=== PATIENT | female | born 1955 | race Caucasian/White ===

== ENCOUNTER → 2017-03-02 18:24 | Outpatient (CLI) | payer MEDICARE, OTHER ==
[2013-08-08 10:29] VITALS: BMI 20.8
[~2017-03-02 18:24] MED LIST: ACIPHEX20 MG PO; ADDERALL 30 MG30 MG PO; GLUCOPHAGE500 MG; LISINOPRIL10 MG PO; MIRAPEX0.25 MG PO; NOVOLIN R100 U/ML SQ; ZOCOR10 MG PO
== END | disposition home or self-care (01) ==
LOC: D.LABREF 18:24
DX: M25.561 Pain in right knee (principal)

== ENCOUNTER 2017-04-17 18:51 | Inpatient (IN) | payer MEDICARE, OTHER ==
[~2017-04-17] VITALS: Ht 167.6 cm; Wt 67.6 kg
[~2017-04-17 18:51] MED LIST changes: -GLUCOPHAGE500 MG; +GLUCOPHAGE500 MG PO
[2017-04-17 21:55] LABS: BASOPHILS 0.2 % (0-2); EOSINOPHILS 2.3 % (0-7); HEMOGLOBIN 11.3 g/dL (12-16); IMMATURE GRANULOCYTES 0.2 % (0-5); LYMPHOCYTES 33.2 % (15-50); MCHC 32.3 g/dL (31.0-37.0); MCV 89.7 fL (80.0-100.0); MONOCYTES 7.1 % (2-11); RDW 12.8 % (11.5-14.5); WBC 6.1 10x3/uL (4.8-10.8)
[2017-04-17 21:57] LABS: PLATELET COUNT 239 10x3/uL (130-400)
[2017-04-17 22:08] LABS: INR 1.1 (0.85-1.17); PROTIME 14.1 SECONDS (11.6-15.0)
[2017-04-17 22:09] LABS: APTT 40.7 SECONDS (22.8-39.4); HEMOGLOBIN A1C 8.7 % (4.8-6.0)
[2017-04-17 22:10] LABS: ALBUMIN 2.8 g/dL (3.4-5.0); ANION GAP 7.6 mmol/L (8-16); BILIRUBIN - TOTAL 0.21 mg/dL (0.2-1.3); CALCIUM 8.1 mg/dL (8.5-10.1); CARBON DIOXIDE 30.5 mmol/L (21.0-32.0); CREATININE - SERUM 0.9 mg/dL (0.6-1.3); POTASSIUM - SERUM 4.1 mmol/L (3.5-5.1); PROTEIN - SERUM 5.6 g/dL (6.4-8.2)
[2017-04-17] MEDS ORDERED: PROVIGIL200 MG PO (23:01)
[2017-04-17] MEDS ORDERED: PROVIGIL100 MG PO (23:02)
[2017-04-17] MEDS ORDERED: OMEPRAZOLE40 MG PO (23:03)
[2017-04-17] MEDS ORDERED: TOPAMAX100 MG PO (23:04)
[2017-04-17] MEDS ORDERED: PROAIR HFA8.5 GM INH (23:05)
--- NOTE | 2017-04-18 02:00 | NUR ---
PT IN BED WITH NO DISTRESS. RESPIRATIONS EVEN AND UNLABORED. SIDE RAILS X 2. BED IS LOW. CALL LIGHT IN REACH.
[2017-04-18 04:00] VITALS: BP 99/56
[2017-04-18 05:30] VITALS: BP 124/72; BMI 19.4
[2017-04-18 08:32] VITALS: BP 113/71
[2017-04-18 08:57] LABS: BASOPHILS 0.2 % (0-2); EOSINOPHILS 2.9 % (0-7); HEMOGLOBIN 11.8 g/dL (12-16); IMMATURE GRANULOCYTES 0.2 % (0-5); LYMPHOCYTES 38.6 % (15-50); MCH 29.2 pg (26.0-34.0); MCHC 32.8 g/dL (31.0-37.0); MCV 89.1 fL (80.0-100.0); MEAN PLATELET VOLUME 8.7 fL (7.4-10.4); MONOCYTES 8.2 % (2-11); NEUTROPHILS 49.9 % (40-80); PLATELET COUNT 235 10x3/uL (130-400); RBC 4.04 10x6/uL (4.00-5.40); RDW 12.9 % (11.5-14.5); WBC 4.8 10x3/uL (4.8-10.8)
[2017-04-18 09:07] LABS: CALC OSMOLALITY 283 mosm/kg (275-300); CALCIUM 8.4 mg/dL (8.5-10.1); CARBON DIOXIDE 34.1 mmol/L (21.0-32.0); CHLORIDE - SERUM 107 mmol/L (98-107); CREATININE - SERUM 0.8 mg/dL (0.6-1.3); POTASSIUM - SERUM 3.8 mmol/L (3.5-5.1); SODIUM 143 mmol/L (136-145); UREA NITROGEN 15 mg/dL (7-18); eGFR NON AFRICAN AMERICAN 77 mL/min (90-120)
[2017-04-18 09:11] LABS: APTT 38.2 SECONDS (22.8-39.4); INR 1.1 (0.85-1.17); PROTIME 14.1 SECONDS (11.6-15.0)
[2017-04-18 09:27] LABS: GLUCOSE 63 mg/dL (74-106)
--- NOTE | 2017-04-18 10:30 | NUR ---
REPORT RECIEVED AND CARE ASSUMED PT RESTIN GIN BED NO DISTRESS NOTED DAUGHTER AT BEDSIDE FOR SURGERY TODAY KNEE REPLACEMENT VS ABT SPACER PLACMENT
[2017-04-18 11:12] LABS: APPEARANCE HAZY (CLEAR); BILIRUBIN NEGATIVE (NEGATIVE); COLOR YELLOW (YELLOW); GLUCOSE 500 mg/dL (NEGATIVE); KETONE NEGATIVE (NEGATIVE); LEUKOCYTE ESTERASE 2+ (NEGATIVE); NITRITE NEGATIVE (NEGATIVE); UROBILINOGEN NORMAL (NORMAL)
[2017-04-18 11:13] LABS: PROTEIN NEGATIVE (NEGATIVE)
[2017-04-18 11:14] LABS: BACTERIA FEW /hpf (NONE SEEN); EPITHELIAL CELLS 0-5 /hpf (0-5); MUCUS <1+ /lpf (NONE SEEN); RED CELLS - URINE OCC /hpf (0-5); WHITE CELLS - URINE 0-5 /hpf (0-5)
--- NOTE | 2017-04-18 12:30 | NUR ---
PT FBS 50 GIVEN 1/2 AMP D50 PER ORDER. RECHECK AT 1310 FBS 100
[2017-04-18 12:44] VITALS: BP 106/67
[2017-04-18 16:15] VITALS: BP 107/63
[2017-04-18 20:00] VITALS: BP 125/64
--- NOTE | 2017-04-18 20:00 | NUR ---
ASSESSMENT PER FLOWSHEET. EYES CLOSED RESPIRATIONS WITH EASE AND UNLABORED. FAMILY MEMBER AT BEDSIDE. IV PATENT RT FOREARM OF NS AT 50CC'S/HR. RT KNEE RED AND SWOLLEN.
--- NOTE | 2017-04-18 21:00 | NUR ---
MEDS GIVEN PER MAR. PATIENT AWAKE AND CONCERNED ABOUT HER HOME MEDS. PRINTED OFF A MED SHEET AND WENT OVER MEDS WITH PATIENT SHE ALSO HAD HER RX BOTTLES AVAILABLE AND HOME MEDS WERE ADDRESSED.
[2017-04-19] VITALS: BP 119/71
--- NOTE | 2017-04-19 | NUR ---
EYES CLOSED RESPIRATIONS WITH EASE AND UNLABORED.
--- NOTE | 2017-04-19 03:00 | NUR ---
REMAINS NPO FOR POSSIBLE SURGERY IN AM.
[2017-04-19 04:03] VITALS: BP 162/69
[2017-04-19 05:03] LABS: BASOPHILS 0.4 % (0-2); HEMATOCRIT 36.4 % (36.0-48.0); HEMOGLOBIN 11.6 g/dL (12-16); IMMATURE GRANULOCYTES 0.2 % (0-5); LYMPHOCYTES 30.4 % (15-50); MCH 28.9 pg (26.0-34.0); MCHC 31.9 g/dL (31.0-37.0); MCV 90.8 fL (80.0-100.0); MEAN PLATELET VOLUME 9.2 fL (7.4-10.4); MONOCYTES 6.8 % (2-11); NEUTROPHILS 60.2 % (40-80); PLATELET COUNT 230 10x3/uL (130-400); RBC 4.01 10x6/uL (4.00-5.40); RDW 12.8 % (11.5-14.5); WBC 4.6 10x3/uL (4.8-10.8)
--- NOTE | 2017-04-19 05:13 | NUR ---
RESTING QUIETLY RESPIRATIONS WITH EASE AND UNLABORED.
[2017-04-19 05:36] LABS: CALCIUM 8.4 mg/dL (8.5-10.1); CARBON DIOXIDE 32.1 mmol/L (21.0-32.0); CREATININE - SERUM 0.9 mg/dL (0.6-1.3)
[2017-04-19 05:37] LABS: POTASSIUM - SERUM 5.1 mmol/L (3.5-5.1)
--- NOTE | 2017-04-19 06:43 | NUR ---
C/O PAIN MORPHINE 4 MG IVP GIVEN FOR PAIN CONTROL. MEDS GIVEN PER NOV.
--- NOTE | 2017-04-19 07:30 | NUR ---
AWAKE, DENIES NEEDS, READY FOR DC, BED LOWEST POSITION, CALL LIGHT IN REACH, WILL CONTINUE TO MONITOR
[2017-04-19 08:43] VITALS: BP 127/71
[2017-04-19 13:56] VITALS: BP 154/87
[2017-04-19 16:17] VITALS: BP 150/86
--- NOTE | 2017-04-19 19:48 | NUR ---
C/O PAIN IN RT KNEE RATES PAIN LEVEL #6. PERCOCET TAB ONE PO GIVEN WITH A SIP OF WATER.
[2017-04-19 20:00] VITALS: BP 125/81
--- NOTE | 2017-04-19 20:00 | NUR ---
ASSESSMENT PER FLOWSHEET. SR UP X2 CALL LIGHT WITHIN REACH NPO FOR SURGERY FAMILY AT BEDSIDE.
--- NOTE | 2017-04-19 20:30 | NUR ---
TO SURGERY PER BED.
[2017-04-20] VITALS (28 sets, daily range): BP systolic 88–169; BP diastolic 57–100
--- NOTE | 2017-04-20 00:07 | NUR ---
PT STILL TRYING TO GET OUT OF BED AND NEEDS RESTRAINTS. ADULT PROTECTIVE CASEWORKER CALLED TO ASSESS THE PATIENT
--- NOTE | 2017-04-20 00:23 | NUR ---
FAMILY AND BOTTOM PRESSER HERE AND MADE A DECISION TO KEEP THE PATIENT IN ICU DUE TO CONCERNS OF THE PATIENT GETTING UP OUT OF BED AND FALLING. THE PATIENT APPEARED TO REST COMFORTABLE BUT WHEN AWAKENED WOULD WANT TO GET UP.
--- NOTE | 2017-04-20 00:30 | NUR ---
REC'D MESSAGE FROM [employer] SALES ENGINEER PATIENT WILL BE GOING TO ICU POST OP DUE TO PT CONTINUING TO TRY AND CLIMB OUT OF BED. BEING UNCOOPERATIVE WITH STAFF.
--- NOTE | 2017-04-20 00:40 | NUR ---
REC'D TO ROOM 2304 VIA BED. TRANSFERRED TO ICU BED AND ICU MONITORS ESTAB. PT DROWSY, DISORIENTED TO SITUATION AND TIME. R KNEE LOLIS DSG C/D/I - R FOOT WARM , PEDAL PULSES PALP. R AC PIV PATENT, NO REDNESS OR SWELLING AT SITE. PLACED ON BEDPAN PER REQUEST - NO VOID AT THIS TIME. ALAMS ON. SEE ICU ASSESSMENT.
--- NOTE | 2017-04-20 01:18 | NUR ---
SON AT BS, B/L SOFT WRIST RESTRAINTS ON PER MD ORDER - PT CONFUSED AND PULLING AT LINES/DRESSINGS. HE VERBALIZES UNDERSTANDING.
--- NOTE | 2017-04-20 01:24 | NUR ---
FAMILY ALLOWED BACK TO AT A TIME. PT DROWSY, FALLING ASLEEP AT TIMES.
--- NOTE | 2017-04-20 02:45 | NUR ---
Reassessment completed per flowsheet, patient resting in bed with eyes closed. Patient uncooperative and aguing with caregivers, disoriented to time/place/situation. S1/S2 noted Sinus Tach on telemetry with HR 108, rhythmic and regular. Breathing is shallow on 2L via NC with O2 sat 93%. All pulses palpable with cap refill < 3 sec. R knee bandaged with no bleeding or drainage noted, skin warm to touch. No further needs at this time, all VSS and will continue to monitor.
--- NOTE | 2017-04-20 03:21 | NUR ---
REASSESSMENT PER FLOWSHEET, PT DEMANDING TO GET UP TO PEE - ASSISTED TO BSC, VOIDED 100ML CLEAR, YELLOW URINE. RPISCILA-CARE PER PT AND BACK TO BED. PT ARGUMENTATIVE AND UNCOOPERATIVE, TRIED TO PULL IV OUT - CONT RESTRAINTS PER MD ORDER. REFUSED RESP TX.
--- NOTE | 2017-04-20 04:30 | NUR ---
PT BEGINNING TO COMPLAIN OF PAIN IN R LEG. CUSTOMER OPERATIONS INTERN DILAUDID INITIATED PER MD ORDER.
[2017-04-20 04:32] LABS: BASOPHILS 0.1 % (0-2); EOSINOPHILS 0.2 % (0-7); HEMATOCRIT 35.9 % (36.0-48.0); HEMOGLOBIN 11.6 g/dL (12-16); IMMATURE GRANULOCYTES 0.5 % (0-5); LYMPHOCYTES 4.7 % (15-50); MCHC 32.3 g/dL (31.0-37.0); MCV 89.8 fL (80.0-100.0); MEAN PLATELET VOLUME 9.3 fL (7.4-10.4); MONOCYTES 5.1 % (2-11); NEUTROPHILS 89.4 % (40-80); PLATELET COUNT 252 10x3/uL (130-400); RDW 12.8 % (11.5-14.5)
[2017-04-20 04:34] LABS: WBC 13.7 10x3/uL (4.8-10.8)
[2017-04-20 04:48] LABS: ANION GAP 14.8 mmol/L (8-16); CALCIUM 8.5 mg/dL (8.5-10.1); CARBON DIOXIDE 27.6 mmol/L (21.0-32.0); POTASSIUM - SERUM 4.4 mmol/L (3.5-5.1)
--- NOTE | 2017-04-20 05:30 | NUR ---
PT USING TIE UP WORKER DILAUDID. RESTING WITH EYES CLOSED AT THIS TIME. VSS. R LEG ELEVATED WITH ICE PACK. ALARMS ON AND C/L IN REACH.
--- NOTE | 2017-04-20 06:28 | NUR ---
NO VISITORS, PT RESTING QUIETLY, VSS.
--- NOTE | 2017-04-20 07:13 | NUR ---
PT AGAIN INSISTING TO GET OOB, ARGUING WITH STAFF - DR. MERCER NOTIFIED OF NEW BLEEDING NOTED POSTERIOR KNEE AND PT AGITATION. NEW ORDERS.
--- NOTE | 2017-04-20 07:37 | CN ---
PATIENT NAME:GURJIT BARKER MEDICAL RECORD: [id number] : 51 LOCATION:[facility]4 ADMIT DATE: 04/18/17 ACCOUNT: [id number] CONSULTING PHYSICIAN: KARTHIK JAMES DO REFERRING PHYSICIAN: SHAYLA MERCER MD GREGORY DATE OF CONSULTATION: 04/18/2017 HISTORY OF PRESENT ILLNESS: A 61-year-old female, consult for medical management, diabetes, hypertension. The patient presented to the Emergency Room with right knee pain, had a previous right total knee arthroplasty that failed with loosening of the joint, was scheduled for revision in April, felt a pop this weekend, presented to the Emergency Room last night. X-ray showed loosening and rotation of the hardware. The patient was admitted to Dr. Mercer with consult for medical management as above. PAST MEDICAL HISTORY: Significant for rheumatoid osteoarthritis, lupus syndrome. The patient has an unclear history of syncopal episodes. Her primary care physician evidently is treating her for narcolepsy. She is on Adderall and Provigil. She also has history of hypertension, is on lisinopril; history of hyperlipidemia, is on Zocor. ALLERGIES: REPORTED KEFLEX AND NEURONTIN. FAMILY HISTORY: Significant for neurological disorders. REVIEW OF SYSTEMS: GENERAL: No acute changes in activity level. HEENT: No cephalgia, visual changes, tinnitus, epistaxis or dysphagia. CARDIOVASCULAR: Denies chest pain or palpitations. PULMONARY: Denies hemoptysis. Denies night sweats. GASTROINTESTINAL: Denies hematemesis, hematochezia or melena. GENITOURINARY: Denies dysuria. MUSCULOSKELETAL: Acute right knee pain and instability as noted above, prior total knee with loosening of the hardware. ENDOCRINE: History of type 2 diabetes, now on insulin. NEUROLOGIC: No present focal deficits, unclear history of narcolepsy versus episodic seizures versus obstructive sleep apnea. She denies ever having any neurological workup, been treated empirically with the above medication by her PCP. PHYSICAL EXAMINATION: VITAL SIGNS: Temperature 97.9, blood pressure 113/71, heart rate 85, respirations 18, O2 sats 100%. GENERAL: Alert, oriented, mild distress secondary to pain in right knee. HEENT: Normocephalic, atraumatic. Eyes: Pupils equal, round and reactive to light and accommodation. Extraocular muscles are intact. Conjunctivae not injected. Ears: Canals patent, TMs are intact. Nose: Nares patent without drainage. Throat: No erythema, no exudates. NECK: Supple. No lymphadenopathy. No JVD. HEART: Regular rate and rhythm. No S3 or S4, no rub. LUNGS: Clear to auscultation bilaterally. Breathing is nonlabored. ABDOMEN: Soft, nontender. Bowel sounds all 4 quadrants. EXTREMITIES: Present times 4. Swelling old surgical scar, right knee, with effusion. NEUROLOGIC: No focal deficits. CONSULT REPORT [id number] GURJIT BARKER [facility]ORAT[facility] DATA: CBC: White count 4.8, hemoglobin 11.8, hematocrit 36, platelets 235. PT is 14.1, INR 1.1. Glucose 201. Chemistry shows sodium of 137, potassium 4.1, chloride 103, bicarbonate 30.5, BUN 18, creatinine 0.9. A1c is 8.7. Ultrasound negative for DVT. X-ray of the right knee, two-view, show no acute fracture. There is loosening of the femoral component of the right knee arthroplasty, rotation of the hardware, large joint effusion. ASSESSMENT AND PLAN: 1. Loosening of hardware, right knee. The patient is admitted to Dr. Mercer, revision anticipated. 2. Diabetes mellitus type 2, insulin-dependent. Resume medications. Add sliding scale, monitor. 3. Unclear history of narcolepsy versus syncope versus seizure disorder. We will hold stimulant medications. Recommend neurology evaluation as outpatient. Also recommend no driving until cleared by neurologist. Discussed this with the patient and family. I appreciate this consult. We will follow accordingly. TRANSINT:[id number] Voice Confirmation ID: [id number] DOCUMENT ID: [id number] KARTHIK JAMES DO at 0737 CC: [id number] DICTATION DATE: 04/18/17923 WATERSIDE WORKER: 04/18/17 1219 ADM IN [facility] [address] [place] [address]
--- NOTE | 2017-04-20 09:49 | NUR ---
PT COMMING OOB AND UNABLE TO REDIRECT, PULLING AT IV LINES AND 02 AND SPO2 DROPS TO 86% AT TIMES. PT RESTRAINED ORDERED. FAMILY HERE AT VISITING HR. PT'S SON REPORTS THAT PT DID FALL AND HIT HER HEAD PRIOR TO HOSPITAL STAY. SON REPORTS THAT THIS WAS NOT KNOWN TO HOSPITAL STAFF BECAUSE THE PERSON WHO BROUGHT HER DID NOT KNOW ABOUT HER HITTING HER HEAD. CALLED AND REPORTED TO DR WILEY AND REC'D ORDERS. CT HEAD ORDER CALLED TO CT ROOM. DR DALLAS CONSULT CALLLED TO DR DALLAS AND REPORTED ASSESSMENT FINDINGS AND HX TO HIM.
--- NOTE | 2017-04-20 10:33 | NUR ---
PT TO CT FOR CT HEAD.
--- NOTE | 2017-04-20 13:50 | NUR ---
1300-DR WHITMAN ROUNDED, SPOKE TO FAMILY AT BS.
--- NOTE | 2017-04-20 13:51 | NUR ---
PT PULLING AT LINES AND ATTEMPTS TO GET OOB. SPOKE TO AMANDO HICKS AT DR REILLY OFFICE. CHANGE PERCOCET AND DILAUDID TO MS IN ATTEMPTS TO CLEAR CONFUSION. REPOSITIONED AND ASSISTED WITH A DRINK.
--- NOTE | 2017-04-20 14:59 | NUR ---
Patient confused - unable to assess dc plans/needs at this time.
[2017-04-20 15:15] LABS: APPEARANCE CLEAR (CLEAR); COLOR YELLOW (YELLOW); LEUKOCYTE ESTERASE NEGATIVE (NEGATIVE); NITRITE NEGATIVE (NEGATIVE); PROTEIN NEGATIVE (NEGATIVE); SPECIFIC GRAVITY 1.025 (1.005-1.020)
[2017-04-20 15:16] LABS: BILIRUBIN NEGATIVE (NEGATIVE); GLUCOSE 1000 mg/dL (NEGATIVE); KETONE MODERATE mg/dL (NEGATIVE); UROBILINOGEN NORMAL (NORMAL)
--- NOTE | 2017-04-20 15:24 | NUR ---
PT CONFUSED, INSISTING TO GO TO POST OFFICE. UNABLE TO REDIRECT. ATIVAN GIVEN.
--- NOTE | 2017-04-20 15:53 | NUR ---
PT CONTINUES TO ATTEMPT TO GET OOB. UNABLE TO REDIRECT. REPOSITIONED IN BED AND ATTEMPTED TO REDIRECT. ASSISTED WITH SIPS OF WATER.
[2017-04-20 16:36] LABS: HEMATOCRIT 29.7 % (36.0-48.0); HEMOGLOBIN 9.7 g/dL (12-16)
--- NOTE | 2017-04-20 19:00 | NUR ---
REPORT RECEIVED. ASSESSMENT COMPLETE PER FLOW SHEET. LAYING IN BED. CONFUSED AND DISORIENTED. WEARS GLASSES. MUCOUS MEMBRANES MOIST. 2 L NC. S1S2 PRESENT. READIAL AND POPLITEAL PULSES PALP. CAPILLARY REFILL <3 SECS IN UPPER AND LOWER EXTREMITIES. TELEMETRY MONITORING SINUS TACHYCARDIA RATE OF 105. HERNANDEZ CATHETER IN PLACE AND SECURED. BANDAGE STAINED WITH BLOOD TO R KNEE/LEG, ICE PACK IN PLACE. SKIN WARM AND DRY. REDDENED AREA B/L FEET. SCDS IN PLACE. RT AC PIV, PATENT, DRESSING CLEAN AND ADHERED TO SKIN. BED IN LOWEST POSITION. BEDSIDE TABLE WITH BELONGINGS NEAR REACH. SEE FLOW SHEET FOR COMPLETE ASSESSMENT. WILL CONTINUE TO MONITOR.
--- NOTE | 2017-04-20 20:30 | NUR ---
LAYING IN BED. DENIES NEEDS AT THIS TIME. CALL LIGHT WITHIN REACH. BED IN LOWEST POSITION. WILL CONTINUE TO MONITOR.
--- NOTE | 2017-04-20 21:10 | NUR ---
R AC PIV OUT OF PLACE DUE TO PT BEING UNCOOPERATIVE AND HYPERACTIVE, DESPITE ATTEMPTS TO CALM HER DOWN, AND MEDICATION GIVEN. NEW PIV TO L AC INFUSING. BED IN LOWEST POSITION. WILL CONTINUE TO MONITOR.
--- NOTE | 2017-04-20 21:41 | NUR ---
LAYING IN BED CALM, RESTING. WILL CONTINUE TO MONITOR. BED IN LOWEST POSITION.
--- NOTE | 2017-04-20 23:00 | NUR ---
REASSESSMENT COMPLETE PER FLOW SHEET, SEE FOR DETAILS. VSS. DENIES NEEDS AT THIS TIME. BED IN LOWEST POSITION. WILL CONTINUE TO MONTIOR.
[2017-04-21] VITALS (25 sets, daily range): BP systolic 114–154; BP diastolic 59–91; Ht 167.6 cm; Wt 67.6 kg
--- NOTE | 2017-04-21 01:00 | NUR ---
LAYING IN BED, RESTING. VSS. DENIES NEEDS AT THIS TIME. CALL LIGHT WITHIN REACH. BED IN LOWEST POSITION. WILL CONTINUE TO MONITOR.
--- NOTE | 2017-04-21 03:00 | NUR ---
LAYING IN BED RESTING. REASSESSMENT COMPLETE PER FLOW SHEET, SEE FOR DETAILS. VSS. DENIES NEEDS AT THIS TIME. CALL LIGHT WITHIN REACH. BED IN LOWEST POSITION. WILL CONTINUE TO MONITOR.
[2017-04-21 03:55] LABS: BASOPHILS 0.1 % (0-2); EOSINOPHILS 0.4 % (0-7); HEMATOCRIT 27.5 % (36.0-48.0); HEMOGLOBIN 8.7 g/dL (12-16); IMMATURE GRANULOCYTES 0.4 % (0-5); LYMPHOCYTES 7.4 % (15-50); MCH 28.6 pg (26.0-34.0); MCHC 31.6 g/dL (31.0-37.0); MCV 90.5 fL (80.0-100.0); MONOCYTES 7.5 % (2-11); NEUTROPHILS 84.2 % (40-80); RDW 13.2 % (11.5-14.5)
[2017-04-21 04:02] LABS: PLATELET COUNT 138 10x3/uL (130-400); RBC 3.04 10x6/uL (4.00-5.40); WBC 9.4 10x3/uL (4.8-10.8)
[2017-04-21 04:13] LABS: CALC OSMOLALITY 284 mosm/kg (275-300); CALCIUM 8.2 mg/dL (8.5-10.1); CARBON DIOXIDE 23.6 mmol/L (21.0-32.0); CHLORIDE - SERUM 106 mmol/L (98-107); CREATININE - SERUM 0.8 mg/dL (0.6-1.3); POTASSIUM - SERUM 4.5 mmol/L (3.5-5.1); SODIUM 141 mmol/L (136-145); UREA NITROGEN 14 mg/dL (7-18); eGFR NON AFRICAN AMERICAN 77 mL/min (90-120)
[2017-04-21 04:14] LABS: GLUCOSE 160 mg/dL (74-106)
--- NOTE | 2017-04-21 04:30 | NUR ---
LAYING IN BED RESTING, DENIES NEEDS AT THIS TIME. CALL LIGHT WITHIN REACH, BED IN LOWEST POSITION. WILL CONTINUE TO MONITOR.
--- NOTE | 2017-04-21 06:00 | NUR ---
LAYING IN BED RESTING, VSS. DENIES NEEDS AT THIS TIME. CALL LIGHT WITHIN REACH. BED IN LOWEST POSITION. WILL CONTINUE TO MONITOR.
--- NOTE | 2017-04-21 07:00 | NUR ---
PT AWAKE AND ALERT, DISORIENTED TO PLACE TIME AND SITUATION. ABLE TO OBEY COMMANDS BUT SO CONFUSED SHE DOES SO INCONSISTENTLY. PT ATTEMPTING TO GET OUT OF BED AND IS SCREAMING. ATTEMPTING TO REORIENT AND EXPLAIN NEED FOR RESTRAINTS FOR HER SAFETY. PT PULLED OUT PIV, USING OTHER IV AT THIS TIME. PULLED OF ELECTRODES FOR EKG. REARRANGED ROOM TO ENSURE SAFETY. COMPLETE SHIFT ASSESSMENT DOCUMENTED PER FLOWSHEET. VITAL SIGNS STABLE
--- NOTE | 2017-04-21 09:00 | NUR ---
PT PULLED OUT PIV. RESITED 20 GA IN LEFT FA AND WRAPPED IN KERLEX GAUZE TO ATTEMPT TO KEEP IN. PT STILL SCREAMING AND DISORIENTED. ATTEMPTING TO ORIENT FREQUENTLY. PT IS ARGUMENTATIVE AND COMBATIVE AT THIS TIME. MONITORING FOR ACUTE CHANGES CLOSELY.
--- NOTE | 2017-04-21 10:12 | NUR ---
* Is the patient Alert and Oriented? Yes 0 * How many steps to enter\exit or inside your home? 3-4 0 * PCP Dr. Shrestha 0 * Pharmacy [facility] 0 * Preadmission Environment Home with Family 0 * ADLs Independent 0 * List name and contact numbers for known caregivers / representatives who currently or will assist patient after discharge: Raya - Mildred [phone] Son - Froylan [phone] Srinivasa Desouza [phone] AICHA Avery [phone] Daughter - Pricila Villa [phone] 0 * Additional services required to return to the preadmission environment? Yes 0 * Can the patient safely return to the preadmission environment? Yes 0 * Has this patient been hospitalized within the prior 30 days at any hospital? No Patient Name: GURJIT BARKER Admission Status: ER Accout number: [id number] Admission Date: 04-18-2017 : 1955 Admission Diagnosis:[facility] LOOSENING OF INTERNAL RIGHT KNEE PROSTHETIC JOINT, Attending: RIK Current LOS: 3 Planned Disposition: Home with Home Health Primary Insurance: MEDICARE A & B Discharge Planning Comments: CM attempted to meet with patient - she remains somewhat agitated. Called and spoke with son, Froylan, via telephone. He reports prior to admission, patient was living with her daughter & her family. She was independent with all ADL's & IADL's. He states she was not using any assistive devices for mobility. He states she has had home health services in the past, but not currently. At ri, she will return home with her family. She will likely need home health. CM will follow & assist as needed. Mechanical Specialist: Susana Vasques
--- NOTE | 2017-04-21 10:58 | NUR ---
CALLED [facility], DR BENSON, AND DR DINERO'S OFFICE PER DR WHITMAN'S REQUEST TO OBTAIN ONCOLOGY HISTORY AND RECORDS. NONE OF THE CLINICS HAVE TREATED THIS PATIENT. AT THIS TIME WE ARE UNABLE TO DETERMINE HISTORY BECAUSE PT IS DISORIENTED AND UNABLE TO GIVE INFORMATION.
--- NOTE | 2017-04-21 13:00 | NUR ---
SON CALLED AND UPDATE GIVEN. PT ASLEEP AT THIS TIME. NO ACUTE CHANGES IN STATUS AT THIS TIME. WILL CONTINUE TO MONITOR
--- NOTE | 2017-04-21 15:20 | NUR ---
PT SCREAMING OUT AND CUSSING AT NURSING STAFF. ATTEMPTED TO REORIENT AND EXPLAIN WHERE SHE IS AND WHY. PT IS COMBATIVE AND REFUSES TO LISTEN AT THIS TIME. PAIN MEDICATION GIVEN. WILL MONITOR CLOSELY.
--- NOTE | 2017-04-21 17:00 | NUR ---
PT AWAKE AT THIS TIME. COMBATIVE AND YELLING. ATTEMPTING TO REORIENT FREQUENTLY. NO FURTHER CHANGES IN STATUS. WILL CONTINUE TO MONITOR
--- NOTE | 2017-04-21 19:15 | NUR ---
REPORT RECIEVED. SHIFT ASSESSMENT COMPLETE. PT IS SLEEPING PEACEFULLY AT THE MOMENT. WHEN AWOKEN SHE IS VERY CONFUSED. SHE DOES KNOW WHO SHE IS BUT SHE DOES NOT KNOW THE TIME, PLACE, AND SITUATION. VSS. SHE IS WEARING HER GLASSES. S1S2 AUDIBLE. HR 107, SINUS TACH VIA TELEMETRY. RR IS SHALLOW, CLEAR LUNG SOUNDS THROUGHOUT ALL LOBES. BS ACTIVE X4, NONTENDER TO TOUCH. R KNEE/CALF DRESSING CDI. RLE GENERALIZED EDEMA. PEDAL PULSES PALP +2. BILAT FEET RED AREA NOTED. IV TO L FOREARM. BANANA BAG INFUSING @ 125 ML/HR AND NS @ KVO. HERNANDEZ CATH, STAT LOCK IN PLACE, DRAINING CLEAR YELLOW FLUID. NO SIGNS OF ACUTE DISTRESS NOTED. SCD'S AND RESTRAINTS RELEASED AND SKIN INSPECTED, WNL. SKIN APPEARS TO BE BOLIVAR AND WRINKLED. BED IN LOWEST POSITION. WILL CONTINUE TO MONITOR.
--- NOTE | 2017-04-21 21:15 | NUR ---
PT WOKE UP AND WAS PULLING AT HERNANDEZ CATH AND LEADS. WRIPPED OFF LEADS, REPLACED THEM WITH NEW. FAMILY MEMBER AT BEDSIDE. DISCUSSED HER POC WITH THEM. PT ABLE TO TAKE ALL PO MEDS WITH APPLESAUCE. SHE STARTED THRASHING ABOUT AND SCREAMING THAT HER LEG WAS HURTING. REPOSITIONED AND ADMINISTERED PRN PAIN MEDICATION. PT IS NOW SLEEPING AND IS EASY TO AWAKE. NO S/S OF DISTRESS NOTED. WILL CONTINUE WITH POC.
--- NOTE | 2017-04-21 23:00 | NUR ---
REASSESSMENT COMPLETE. PT RESTING PEACEFULLY WITH NO S/S OF ACUTE DISTRESS OR DISCOMFORT NOTED. S1S2 AUDIBLE, HR 102 SINUS TACH VIA TELEMETRY. SHALLOW RR, LUNG SOUNDS CLEAR THROUGHOUT ALL LOBES. BS ACTIVE X4. RADIAL AND PEDAL PULSES PALP. VSS. CALL LIGHT IN REACH. WRIST RESTRAINTS REMOVED AND SKIN INSPECTED, WNL. BED IN LOWEST POSITION. WILL CONT. TO MONITOR.
[2017-04-22] VITALS (26 sets, daily range): BP systolic 93–162; BP diastolic 53–81
--- NOTE | 2017-04-22 | NUR ---
0000: Pt remains restless and repositioned for comfort at this time with pillow support. Pt continually with periods of yelling and cursing followed by periods of pt resting with eyes closed, but easy to arouse. Pt will not follow commands and pulls at telem, SPO2, IV etc.... Pt remains SR/ST on CM increased HR with stimulation.
--- NOTE | 2017-04-22 01:00 | NUR ---
PT IS RESTING PEACEFULLY RIGHT NOW WITH NO S/S OF DISTRESS NOTED. VSS. CALL LIGHT IN REACH. SWAB CAPS IN USE, IV TUBING LABELED. WILL CONT WITH POC.
--- NOTE | 2017-04-22 03:00 | NUR ---
REASSESSMENT COMPLETE. PT IS STILL CONFUSED TO TIME, PLACE AND SITUATION. SHE KEEPS CRYING OUT FOR "NEO." I TRIED TO EXPLAIN TO HER THAT SHE IS NOT HERE AT THE MOMENT AND THAT SHE IS AT THE HOSPITAL IN THE ICU. PT DID NOT STATE THAT SHE UNDERSTOOD. PT DOES LOCALIZE PAIN TO HER R KNEE. SHE RATES IT A 6-8/10. ADMINISTERED PRN PAIN MED AND REPOSITIONED FOR COMFORT. NO OTHER CHANGES AT THIS TIME. WILL CONTINUE WITH POC.
--- NOTE | 2017-04-22 05:00 | NUR ---
COMPLETE LINEN CHANGE. PT STATES THAT SHE IS IN A LOT OF PAIN AT THE MOMENT. ADMIN PRN PAIN MED AND REPOSITIONED FOR COMFORT. R LEG ELEVATED ON PILLOW. PT KEEPS PULLING OFF GOWN AND ELECTRODES AND SHE IS TRYING TO PULL OUT IV. RESTRAINTS TIED. CALL LIGHT IN REACH. BED IN LOWEST POSITION. WILL CONT TO MONITOR.
[2017-04-22 05:25] LABS: HEMATOCRIT 23.9 % (36.0-48.0); HEMOGLOBIN 7.7 g/dL (12-16); LYMPHOCYTES 13.4 % (15-50); MCH 28.4 pg (26.0-34.0); MCHC 32.2 g/dL (31.0-37.0); MEAN PLATELET VOLUME 8.4 fL (7.4-10.4); NEUTROPHILS 77.1 % (40-80); PLATELET COUNT 159 10x3/uL (130-400); RBC 2.71 10x6/uL (4.00-5.40); RDW 12.9 % (11.5-14.5); WBC 7.8 10x3/uL (4.8-10.8)
[2017-04-22 05:26] LABS: MCV 88.2 fL (80.0-100.0)
[2017-04-22 05:47] LABS: ALBUMIN 2.3 g/dL (3.4-5.0); ALKALINE PHOSPHATASE 82 U/L (46-116); ALT (SGPT) 18 U/L (10-68); BILIRUBIN - TOTAL 0.56 mg/dL (0.2-1.3); CALC OSMOLALITY 279 mosm/kg (275-300); CALCIUM 8.1 mg/dL (8.5-10.1); CARBON DIOXIDE 23.1 mmol/L (21.0-32.0); CHLORIDE - SERUM 106 mmol/L (98-107); CREATININE - SERUM 0.8 mg/dL (0.6-1.3); PHOSPHOROUS 2.6 mg/dL (2.5-4.9); POTASSIUM - SERUM 3.9 mmol/L (3.5-5.1); PROTEIN - SERUM 5.5 g/dL (6.4-8.2); SODIUM 140 mmol/L (136-145); UREA NITROGEN 15 mg/dL (7-18); VANCOMYCIN - TROUGH 19.5 ug/mL (10.0-20.0); eGFR NON AFRICAN AMERICAN 77 mL/min (90-120)
[2017-04-22 05:48] LABS: GLUCOSE 99 mg/dL (74-106)
--- NOTE | 2017-04-22 07:45 | NUR ---
AROUSES TO VERBAL STIMULI. AGITATED AND UNCOOPERATIVE. ASSESSMENT COMPLETE.
--- NOTE | 2017-04-22 09:00 | NUR ---
RESTING WITH EYES CLOSED. NO DISTRESS NOTED.
--- NOTE | 2017-04-22 09:54 | NUR ---
Nutrition follow-up: Diet: Regular with Ensure TID PO intake poor due to agitation, confusion Labs reviewed Wt: 146# Recommend NGT vs PEG tube placement and Osmolite started @ 25 ml/hr with gradual increase to goal rate of 75 ml/hr. RDN following.
--- NOTE | 2017-04-22 11:00 | NUR ---
ASSESSMENT COMPLETE. NO ACUTE CHANGES.
--- NOTE | 2017-04-22 15:00 | NUR ---
SON @ BEDSIDE. CONDITION UPDATE GIVEN. QUESTIONS ANSWERED.
--- NOTE | 2017-04-22 17:00 | NUR ---
2 UNITS PRBCS COMPLETED. TOLERATED WELL. LASIX GIVEN. NO ACUTE CHANGES IN CONDITION.
--- NOTE | 2017-04-22 19:00 | NUR ---
1900: Pt resting HOB 30 degrees with eyes closed. Pt eyes open briefly to verbal. Pupils TR+ bilat. Pt does not follow commands and is consistently attempting to pull of gown, telem, IV, SPO2 etc.. Pt remains in bilat soft wrist restraints. Pt breathing 022LNC with [id number] with SPO2 98%. S1S2 regular SR on CM (HR increased with stimulation) RLE distal pulse via doppler with good return. RLE remains with dressing intact. Area distal to knee swollen and tight to touch. Pt yells with movement of RLE. ABD soft NT BS x4 active. Adams to gravity wiht >30 cc/hr clear yellow UOP.
--- NOTE | 2017-04-22 21:00 | NUR ---
2100: Pt will not follow commands or directions with repeated verbal instructions. Pt unable to swallow and spits out pills with attempted admin. Pt yelling out, cursing, and saying "help." [id number] admin for pain control via left FA PIV. Left hand swollen distally and elevated on pillow support. PIV remains intact and no infiltration is seen.
[2017-04-23] VITALS (24 sets, daily range): BP systolic 118–157; BP diastolic 66–100
--- NOTE | 2017-04-23 | NUR ---
0000: No change in pt RESP/CV/NV status. No change in IVF/UOP at this time. Pt remains SR/ST 90-1110 bpm on CM.
--- NOTE | 2017-04-23 04:00 | NUR ---
0400: No change in RESP/NV/CV status. No change in IVF/UOP. Pt RLE remains unchanged from assess. Pulse weak but palpable and easy to obtain via doppler. Pt remains SR/ST on CM 90-110 bpm.
[2017-04-23 05:23] LABS: BASOPHILS 0.2 % (0-2); EOSINOPHILS 4.5 % (0-7); IMMATURE GRANULOCYTES 0.5 % (0-5); LYMPHOCYTES 9.1 % (15-50); MCHC 33.3 g/dL (31.0-37.0); MCV 90.1 fL (80.0-100.0); MEAN PLATELET VOLUME 9.4 fL (7.4-10.4); MONOCYTES 7.7 % (2-11); PLATELET COUNT 153 10x3/uL (130-400); RDW 13.5 % (11.5-14.5); WBC 8.5 10x3/uL (4.8-10.8)
[2017-04-23 05:32] LABS: CALC OSMOLALITY 279 mosm/kg (275-300); CALCIUM 8.3 mg/dL (8.5-10.1); CARBON DIOXIDE 17.8 mmol/L (21.0-32.0); CHLORIDE - SERUM 105 mmol/L (98-107); CREATININE - SERUM 0.8 mg/dL (0.6-1.3); GLUCOSE 108 mg/dL (74-106); POTASSIUM - SERUM 3.9 mmol/L (3.5-5.1); SODIUM 139 mmol/L (136-145); UREA NITROGEN 15 mg/dL (7-18); VANCOMYCIN - TROUGH 21.4 ug/mL (10.0-20.0); eGFR NON AFRICAN AMERICAN 77 mL/min (90-120)
[2017-04-23 05:34] LABS: HEMATOCRIT 32.7 % (36.0-48.0); HEMOGLOBIN 10.9 g/dL (12-16); RBC 3.63 10x6/uL (4.00-5.40)
--- NOTE | 2017-04-23 06:45 | NUR ---
0645: Dr. Rodriguez here at bedside. Encouraged PO intake with patient. Pt placed HOB 30 degrees and repositioned for comfort.
--- NOTE | 2017-04-23 07:00 | NUR ---
REC'D CARE OF PT. EYEGLASSES IN BED WITH PT. ONE OF THE GLASSES LENS IS MISSING.CONFUSED.
--- NOTE | 2017-04-23 08:05 | NUR ---
REFUSED TO ANSWER QUESTIONS.
--- NOTE | 2017-04-23 08:29 | NUR ---
MANAGED TO GET HER TO TAKE ELEQUIS AND LIBRIUM IN PUDDING.
--- NOTE | 2017-04-23 08:41 | NUR ---
REFUSED BREAKFAST TRAY
--- NOTE | 2017-04-23 09:00 | NUR ---
FSBS 104. LANTUS NOT GIVEN. REFUSED TO EAT.
--- NOTE | 2017-04-23 09:02 | NUR ---
PULLS EVERYTHING OFF. TRIES TO PULL IV OUT. TRIES TO CLIMB OOB. REORIENTED.
--- NOTE | 2017-04-23 09:04 | NUR ---
ALL CCARDIAC LEADS PUT BACK ON. REORIENTED.
--- NOTE | 2017-04-23 09:12 | NUR ---
DR. ENNIS AT BEDSIDE.
--- NOTE | 2017-04-23 09:12 | NUR ---
DISCUSSED HNT WITH DR. ENNIS. DISCUSSED ABOUT REFUSING TO TAKE BP MEDS. IV HYDRALAZINE ORDERED.
--- NOTE | 2017-04-23 09:48 | NUR ---
IS ALL OVER THE BED. TRYING TO CLIMB OOB. PULLS AT EVERYTTTHING.
--- NOTE | 2017-04-23 10:30 | NUR ---
LESS AGITTATED AND AGGRESSIVE AFTER LIBRIUM SARTED TO WORK.
--- NOTE | 2017-04-23 12:27 | NUR ---
DANIEL OUT. WILL NOT ANSWER QUESTIONS. "PLEASE HELP ME". MORPHINE GIVEN FOR SUSPECTED PAIN.
--- NOTE | 2017-04-23 12:33 | NUR ---
REFUSES TO EAT.
--- NOTE | 2017-04-23 14:13 | NUR ---
LESS AGITATED. RESTING OFF AND ON WITH EYES CLOSED. VSS.
--- NOTE | 2017-04-23 14:51 | NUR ---
ULISES OUT. DANIEL OUT. GIVING PAIN PILL.
--- NOTE | 2017-04-23 14:55 | NUR ---
DR. LOMBARDO PRONOUNCED.
--- NOTE | 2017-04-23 17:27 | NUR ---
REPOSITTIONS SELF IN BED
--- NOTE | 2017-04-23 17:55 | NUR ---
TRIES TO CLIMB OOB. PULLS EVERYTHING OFF. REAPPLIED EKG LEADS AND HOOKEDMBACK UP TO CM. REORIENTED
--- NOTE | 2017-04-23 18:03 | NUR ---
SON AT BEDSIDE WITH HIS .
--- NOTE | 2017-04-23 18:15 | NUR ---
FAMILY AT BEDSIDE. UPDATED. QUESTIONS ANSWERED. CONCERNS ADDRESSED.
[2017-04-23] MEDS ORDERED: VALIUM10 MG PO (22:59)
[2017-04-23] MEDS ORDERED: AMBIEN10 MG PO (22:59)
[2017-04-23] MEDS ORDERED: NORCO 7.5/325 T1 TA1 PO (23:00)
[2017-04-23] MEDS ORDERED: HYDROCODON-ACE1 EAC9 PO (23:03)
[2017-04-24] VITALS (24 sets, daily range): BP systolic 129–159; BP diastolic 64–86
--- NOTE | 2017-04-24 00:40 | NUR ---
REPORT RECEIVED. PT LAYING IN BED, CONFUSED, UNCOOPERATIVE. L FOREARM PIV INFUSING MVI BAG AT 125 MLS/HR. 2 L NC. S1S2 PRESENT. BS ACTIVE X4. HERNANDEZ CATHETER IN PLACE AND SECURED DRAINING CLEAR YELLOW URINE. SCD ON L LEG. R LEG DRESSING INTACT, AND CLEAN, NO DRAINAGE. BED IN LOWEST POSITION. SEE FLOW SHEET FOR COMPLETE ASSESSMENT. WILL CONTINUE TO MONITOR.
--- NOTE | 2017-04-24 01:00 | NUR ---
LAYING IN BED, MOVING AROUND, PULLING ON HOSPITAL GOWN, ENCOURAGED PT TO CALM DOWN, UNABLE TO FOLLOW COMMANDS. VSS. PT NOW CALM AND RESTING IN BED. BED IN LOWEST POSITION. WILL CONTINUE TO MONITOR.
--- NOTE | 2017-04-24 03:00 | NUR ---
REASSESSMENT COMPLETE PER FLOW SHEET, SEE FOR DETAILS. BED IN LOWEST POSITION. WILL CONTINUE TO MONITOR.
[2017-04-24 04:33] LABS: BASOPHILS 0.3 % (0-2); EOSINOPHILS 4.1 % (0-7); HEMATOCRIT 32.1 % (36.0-48.0); HEMOGLOBIN 10.8 g/dL (12-16); IMMATURE GRANULOCYTES 0.5 % (0-5); MCH 30.2 pg (26.0-34.0); MCHC 33.6 g/dL (31.0-37.0); MCV 89.7 fL (80.0-100.0); MEAN PLATELET VOLUME 9.2 fL (7.4-10.4); MONOCYTES 7.5 % (2-11); NEUTROPHILS 77.6 % (40-80); RBC 3.58 10x6/uL (4.00-5.40); RDW 13.5 % (11.5-14.5)
[2017-04-24 04:36] LABS: PLATELET COUNT 195 10x3/uL (130-400)
[2017-04-24 04:40] LABS: CALC OSMOLALITY 278 mosm/kg (275-300); CALCIUM 8.4 mg/dL (8.5-10.1); CARBON DIOXIDE 16.3 mmol/L (21.0-32.0); CHLORIDE - SERUM 106 mmol/L (98-107); CREATININE - SERUM 0.8 mg/dL (0.6-1.3); GLUCOSE 132 mg/dL (74-106); SODIUM 139 mmol/L (136-145); eGFR NON AFRICAN AMERICAN 77 mL/min (90-120)
[2017-04-24 04:41] LABS: UREA NITROGEN 10 mg/dL (7-18)
--- NOTE | 2017-04-24 05:00 | NUR ---
LAYING IN BED RESTING. DENIES NEEDS AT THIS TIME. BED IN LOWEST POSITION. WILL CONTINUE TO MONITOR.
--- NOTE | 2017-04-24 06:00 | NUR ---
NO VISITORS AT THIS TIME, DENIES NEEDS. BED IN LOWEST POSITION. WILL CONTINUE TO MONITOR.
--- NOTE | 2017-04-24 07:00 | NUR ---
REC'D CARE OF PT. WILL NOT SPEAK WITH ME.
--- NOTE | 2017-04-24 07:29 | NUR ---
AT BEDSIDE WHEN PT. REFUSED TO TAKE MEDICATION. LIBRIUM CHANGED TO ATIVAN PER DR. DALLAS.
--- NOTE | 2017-04-24 07:30 | NUR ---
UPDATED DR. DALLAS ABOUT THE AMOUNT OF HYDROCODONE AND VICODEN SHE HAS BEEN TAKING AT HOME PER HOME MED LIST HER SON HAD BROUGHT IN LAST NITE.
--- NOTE | 2017-04-24 07:59 | NUR ---
PULLS AT EVERYTHING. CONTINUES TO PULL EKG LEADS OFF AND I CONTINUE TO PUT THEM BACK ON. DID SAY "NO" WHEN ASKED IF SHE WANTED TO EAT BREAKFAST. REFUSED TRAY. CONTINUES TO TRY TO CLIMB OOB.
--- NOTE | 2017-04-24 08:02 | NUR ---
TRIED TO GIVE LIBRIUM AND OTHER PO MEDS AGAIN. SHE REFUSED AGAIN. TRYING TO CLIMB OOB. SAYS " I QUIT" REPEATEDLY. WILL NOT ANSWER QUESTIONS AT THIS TIME.
--- NOTE | 2017-04-24 08:30 | NUR ---
REPOSITIONS SELF IN BED
--- NOTE | 2017-04-24 08:48 | NUR ---
DR. ALONSO AT BEDSIDE. UPDATED HIM ABOUT AMOUNT OF HYDROCODONE PT. TAKES AT HOME. PULSES BEING WEAK ON RIGHT LOWER EXT AND CAP REFILL BEING 3 ON RIGHT GREAT TOE.
--- NOTE | 2017-04-24 11:00 | NUR ---
CRYING OUT. FACIAL EXPRESSION=FLACC SCALE 8/10 PAIN. MORPHINE GAVE.
--- NOTE | 2017-04-24 11:01 | NUR ---
REPOSITIONED FOR COMFORT AND TO PRESERVE SKIN INTEGRITY.
--- NOTE | 2017-04-24 11:18 | NUR ---
FULLY BATHED AND PARTIAL LINEN CHANGED. PULLED UP IN BED.
--- NOTE | 2017-04-24 11:33 | NUR ---
NO S/S OF PAIN.
--- NOTE | 2017-04-24 13:30 | NUR ---
REPOSITIONED FOR COMFORT AND TO PRESERVE SKIN INTEGRITY.
--- NOTE | 2017-04-24 14:31 | NUR ---
DRSG CHANGED AT LEFT FOREARM PIV. NO S/S OF INFECTION. NO S/S INFILTRATION. NS CONTINUES TO INFUSE AT 10CC PER HOUR AND BANANA BAG INFUSING AT 125 CC PER HOUR. CONTINUES TO BE RESTLESS. TRYING TO CLIMB OOB. PULLING AT LINES AND EKG LEADS. REFUSES TO TALKE REFUSE TO EAT. ON 2L VIA NC SATTING 98%. RR 20 EVEN AND UNLABORED. CTA WITH DIMINISHING LOWER LOBES. GARZA. WILL NOT FOLLOW COMMANDS. RIGHT LEG WRAPPED WITH LOLIS BANDAGE. DRSG CD&I AT RIGHT KNEE. CAP REFILL 3 AT RIGHT GREAT TOE. PPP BUT WEAK IN LOWER EXT. REMIOANS RESTRAINED TO KEEP HER FROM GETTING OOB AND FALLING AND TO KEEP FROM PULLING PIV OUT. CLWR. CPOC.
--- NOTE | 2017-04-24 15:59 | NUR ---
REPOSITIONED FOR COMFORT AND TO PRESERVE SKIN INTEGRITY.
--- NOTE | 2017-04-24 18:07 | NUR ---
CRYING OUT AND HOLLERING. FLACC SCALE 8/10 PAIN. MORPHINE GIVEN PER ORDERS.
--- NOTE | 2017-04-24 19:00 | NUR ---
REPORT RECEIVED. ASSESSMENT COMPLETE PER FLOWSHEET. LAYING IN BED, RESTLESS AND AGIATATED, WILL NOT SPEAK WHEN ASKED WHAT IS WRONG, S1S2 PRESENT. TELEMETRY MONITORING SINUS RHYTHM RATE OF 87. RADIAL PULSES PALP. RT PEDAL PULSE WEAK, LT PEDAL PULSE PALP. +1 PITTING EDEMA RUE AND LUE. +2 EDEMA ON RLE AND LLE. CAPILLARY REFILL <3 SECS. SHALLOW BREATHIN PATTERN, WILL NOT FOLLOW COMMAND WHEN ASKED TO TAKE DEEP BREATHS. 2 L NC. HERNANDEZ CATHETER IN PLACE AND SECURED DRAINING CLEAR YELLOW URINE. WEAKNESS NOTED IN ALL EXTEMITIES. SKIN IS WARM AND DRY. R KNEE DRESSING INTACT, NO DRAINAGE. LT FOREARM PIV, PATENT, DRESSING INTACT. R&L SOFT WRIST RESTRAINTS SECURED. SEE FLOW SHEET FOR COMPLETE ASSESSMENT. BED IN LOWEST POSITION. WILL CONTINUE TO MONITOR.
--- NOTE | 2017-04-24 20:14 | NUR ---
IVORY JENKINS CALLED, SECURITY CODE RECEIVED. UPDATE GIVEN. QUESTIONS ANSWERED.
--- NOTE | 2017-04-24 21:00 | NUR ---
LAYING IN BED RESTING, VSS. BED IN LOWEST POSITION. WILL CONTINUE TO MONITOR.
--- NOTE | 2017-04-24 23:00 | NUR ---
LAYING IN BED RESTING. REASSESSMENT COMPLETE PER FLOW SHEET, SEE FOR DETAILS. VSS. BED IN LOWEST POSITION. WILL CONTINUE TO MONITOR.
[2017-04-25] VITALS (24 sets, daily range): BP systolic 105–143; BP diastolic 54–98
--- NOTE | 2017-04-25 02:00 | NUR ---
LAYING IN BED RESTING. VSS. BED IN LOWEST POSITION. WILL CONTINUE TO MONITOR.
--- NOTE | 2017-04-25 03:00 | NUR ---
REASSESSMENT COMPLETE PER FLOW SHEET, SEE FOR DETAILS. VSS. BED IN LOWEST POSITION. WILL CONTINUE TO MONITOR.
[2017-04-25 04:37] LABS: BASOPHILS 0.3 % (0-2); EOSINOPHILS 3.9 % (0-7); HEMATOCRIT 35.9 % (36.0-48.0); HEMOGLOBIN 11.8 g/dL (12-16); LYMPHOCYTES 11.5 % (15-50); MCH 29.9 pg (26.0-34.0); MCHC 32.9 g/dL (31.0-37.0); MCV 91.1 fL (80.0-100.0); MEAN PLATELET VOLUME 9.4 fL (7.4-10.4); MONOCYTES 8.5 % (2-11); NEUTROPHILS 73.8 % (40-80); RBC 3.94 10x6/uL (4.00-5.40); RDW 13.8 % (11.5-14.5); WBC 9.7 10x3/uL (4.8-10.8)
[2017-04-25 04:40] LABS: PLATELET COUNT 239 10x3/uL (130-400)
[2017-04-25 04:57] LABS: ALBUMIN 2.4 g/dL (3.4-5.0); ALKALINE PHOSPHATASE 108 U/L (46-116); ALT (SGPT) 16 U/L (10-68); BILIRUBIN - TOTAL 0.65 mg/dL (0.2-1.3); CALC OSMOLALITY 282 mosm/kg (275-300); CALCIUM 8.8 mg/dL (8.5-10.1); CARBON DIOXIDE 16.4 mmol/L (21.0-32.0); CHLORIDE - SERUM 109 mmol/L (98-107); CREATININE - SERUM 0.8 mg/dL (0.6-1.3); GLUCOSE 149 mg/dL (74-106); POTASSIUM - SERUM 4.4 mmol/L (3.5-5.1); PROTEIN - SERUM 6.2 g/dL (6.4-8.2); SODIUM 141 mmol/L (136-145); UREA NITROGEN 9 mg/dL (7-18); eGFR NON AFRICAN AMERICAN 77 mL/min (90-120)
--- NOTE | 2017-04-25 05:00 | NUR ---
LAYING IN BED RESTING. VSS. WILL CONTINUE TO MONITOR. BED IN LOWEST POSITION.
--- NOTE | 2017-04-25 06:00 | NUR ---
NO VISITORS AT THIS TIME. VSS. BED IN LOWEST POSITION. WILL CONTINUE TO MONITOR.
--- NOTE | 2017-04-25 07:00 | NUR ---
PT DROWSY THIS MORNING BUT AROUSES TO VOICE AND STIMULATION. REMAINS CONFUSED AND NON-COMPLIANT AT THIS TIME. ATTEMPTING TO ORIENT PT FREQUENTLY TO PLACE TIME AND SITUATION BUT SHE REMAINS DISORIENTED. NORMAL SINUS ON MONITOR. O2 SAT STABLE ON 2L NC. RESTRAINTS CHECKED AND SECURED. COMPLETE SHIFT ASSESSMENT DOCUMENTED PER FLOWSHEET. WILL CONTINUE TO MONITOR CLOSELY.
--- NOTE | 2017-04-25 09:00 | NUR ---
DAUGHTER CALLED AND PROVIDED SECURITY PASSCODE, UPDATE GIVEN. NO ACUTE CHANGES IN PT STATUS AT THIS TIME. WILL CONTINUE TO MONITOR
--- NOTE | 2017-04-25 10:00 | NUR ---
CALLED DR LALA OFFICE AND SPOKE WITH HIS NURSE ABOUT PT STATUS. PT IS STILL REFUSING TO EAT OR TAKE PO MEDICATION. WILL ORDER PSYCH CONSULT ON PT TO GET SUGGESTIONS PRIOR TO TAKING FURTHER ACTION SUCH AN NG TUBE. WILL CONTINUE TO MONITOR.
--- NOTE | 2017-04-25 10:06 | NUR ---
Nutrition follow-up: Diet: REgular as tolerated with Ensure TID Pt refusing trays; remains confused labs reviewed Wt: 137#; wt down 8# from admit Pt now assessed with severe malnutrition of acute illness R/T recent knee surgery AEB < 50% intake of estimate energy needs for > 5 days; > 5% weight loss in 7 days (Admit wt 145# - current wt 137#). Banana bag infusing @ 125 ml/hr Recommend PEG vs NGT placement and TF of Osmolite started @ 25 ml/hr iwth goal rate of 75 ml/hr. RDN following.
--- NOTE | 2017-04-25 12:15 | NUR ---
DR SANTOS SAW PT AND STATES THAT HE AGREES WITH CURRENT PLAN OF CARE. WILL CALL DR ENNIS FOR FURTHER INSTRUCTION
--- NOTE | 2017-04-25 14:00 | NUR ---
ORDERS TO INSERT NGT FOR PO MEDS AND DIETARY CONSULT IN COMPUTER TO EVALUATE NEED FOR FEEDINGS. NO FURTHER CHANGES AT THIS TIME
--- NOTE | 2017-04-25 15:32 | NUR ---
Nutrition consult: Received order to begin TF Chart reviewed. RDN ordered Osmolite 1.5 patel @ 25 ml/hr with gradual increase to goal rate of 40 ml/hr with 60 ml H2O flush every [address] RDN following.
--- NOTE | 2017-04-25 16:30 | NUR ---
TEDDY CALLED AND PROVIDED SECURITY CODE. UPDATE GIVEN AND QUESTIONS ANSWERED. NO FURTHER CHANGES AT THIS TIME. VITAL SIGNS STABLE
--- NOTE | 2017-04-25 16:56 | NUR ---
NGT INSERTED TO LEFT NARES. VERIFIED BY AUSCULTATION AND ASPIRATION. WILL OBTAIN CHEST XRAY PER ORDER. TUBE FEEDINGS INITIATED PER ORDER, OSMALITE 1.5CAL AT 20ML/HR WITH 60ML FLUSH Q4H, WILL CHECK RESIDUALS TO INCREASE OR DECREASE RATE. PT REPOSITIONED IN BED. WILL CONTINUE TO MONITOR
--- NOTE | 2017-04-25 19:00 | NUR ---
REPORT RECEIVED. ASSESSMENT COMPLETE PER FLOW SHEET. LAYING IN BED RESTING. PT IS LETHARGIC, WILL NOT ANSWER QUESTIONS. OPENS EYES TO SPEECH. S1S2 PRESENT. RADIAL PULSES AND POPLITEAL PALP. CAPILLARY REFILL <3 SECS. TELEMETRY MONITORING RATE OF 96 NORMAL SINUS. 2 L NC. OSMOLITE 1.5 BRANDON TUBE FEEDINGS AT 20 MLS/HR VIA NGT, NGT PLACEMENT VERIFIED VIA AUSCULATATION, RESIDUAL OF 100 MLS OF WATERY GREEN STOMACH CONTENT OBTAINED. SCD ON L LEG. BED IN LOWEST POSITION. WILL CONTINUE TO MONITOR.
--- NOTE | 2017-04-25 21:00 | NUR ---
LAYING IN BED RESTING. VSS. WILL CONTINUE TO MONITOR.
--- NOTE | 2017-04-25 21:50 | NUR ---
SPOKE TO DAUGHTER IN-LAW, SUZAN BARKER, SECURITY CODE CONFIRMED. QUESTIONS ANSWERED. UPDATE GIVEN.
--- NOTE | 2017-04-25 23:00 | NUR ---
REASSESSMENT COMPLETE PER FLOW SHEET. SEE FOR DETAILS. VSS. BED IN LOWEST POSITION. WILL CONTINUE TO MONITOR.
[2017-04-26] VITALS (24 sets, daily range): BP systolic 121–159; BP diastolic 6–82
--- NOTE | 2017-04-26 01:00 | NUR ---
LAYING IN BED RESTING. BED IN LOWEST POSITION. WILL CONTINUE TO MONITOR.
--- NOTE | 2017-04-26 03:00 | NUR ---
REASSESSMENT COMPLETE SEE FLOW SHEET FOR DETAILS. VSS. BED IN LOWEST POSITION. WILL CONTINUE TO MONITOR.
[2017-04-26 03:12] LABS: BASOPHILS 0.2 % (0-2); EOSINOPHILS 2.8 % (0-7); HEMOGLOBIN 10.8 g/dL (12-16); IMMATURE GRANULOCYTES 1.5 % (0-5); LYMPHOCYTES 8.7 % (15-50); MCH 29.8 pg (26.0-34.0); MCHC 32.7 g/dL (31.0-37.0); MCV 90.9 fL (80.0-100.0); MEAN PLATELET VOLUME 9.3 fL (7.4-10.4); MONOCYTES 9.7 % (2-11); NEUTROPHILS 77.1 % (40-80); PLATELET COUNT 241 10x3/uL (130-400); RBC 3.63 10x6/uL (4.00-5.40); RDW 14.1 % (11.5-14.5); WBC 9.4 10x3/uL (4.8-10.8)
[2017-04-26 03:39] LABS: ANION GAP 24.6 mmol/L (8-16); CALCIUM 8.4 mg/dL (8.5-10.1); CARBON DIOXIDE 11.1 mmol/L (21.0-32.0); CREATININE - SERUM 0.9 mg/dL (0.6-1.3); POTASSIUM - SERUM 4.7 mmol/L (3.5-5.1)
--- NOTE | 2017-04-26 05:00 | NUR ---
LAYING IN BED RESTING. VSS. BED IN LOWEST POSITION. WILL CONTINUE TO MONITOR.
--- NOTE | 2017-04-26 06:00 | NUR ---
LAYING IN BED RESTING. NO VISITORS AT THIS TIME. BED IN LOWEST POSITION. WILL CONTINUE TO MONITOR.
--- NOTE | 2017-04-26 07:00 | NUR ---
PT ASLEEP BUT AROUSES TO VOICE AND PAINFUL STIMULI. NOT FOLLOWING COMMANDS AT THIS TIME. DR DALLAS SAW PT, UPDATE GIVEN AND ATIVAN DOSAGE DECREASED DUE TO PT LETHARGY. SINUS TACHYCARDIA NOTED ON MONITOR. O2 SAT STABLE ON 2L NC. ORAL CARE PERFORMED. NO EVIDENCE OF PAIN AT THIS TIME. RESIDUALS CHECKED AND 150 NOTED. COMPLETE SHIFT ASSESSMENT DOCUMENTED PER FLOWSHEET. WILL CONTINUE TO MONITOR
--- NOTE | 2017-04-26 09:00 | NUR ---
PT REPOSITIONED IN BED AND ORAL CARE PERFORMED. NO ACUTE CHANGES IN PT STATUS AT THIS TIME. WILL CONTINUE TO MONITOR CLOSELY. RESTRAINTS CHECKED AND SECURED, BED ALARM ON.
--- NOTE | 2017-04-26 11:00 | NUR ---
PT REPOSITIONED IN BED AND ORAL CARE PERFORMED. NO CHANGES IN STATUS AT THIS TIME. WILL CONTINUE TO MONITOR CLOSELY.
--- NOTE | 2017-04-26 13:00 | NUR ---
PT STATUS REMAINS UNCHANGED. ORAL CARE PERFORMED AND REPOSITIONED IN BED. VITAL SIGNS STABLE. WILL CONTINUE TO MONITOR
--- NOTE | 2017-04-26 13:39 | NUR ---
RESIDUAL CHECKED AND 90ML NOTED. FEED RATE INCREASED 10 ML PER ORDER. FEED RATE NOW 30ML/HR. WILL CHECK AGAIN PER ORDER. VITAL SIGNS STABLE. WILL CONTINUE TO MONITOR
--- NOTE | 2017-04-26 15:06 | NUR ---
PT REPOSITIONED IN BED AND BARRIER CREAM APPLIED TO BUTTOCK. NO FURTHER CHANGES AT THIS TIME. VITAL SIGNS STABLE
--- NOTE | 2017-04-26 17:00 | NUR ---
PT RESTING AT THIS TIME AND SHOWING NO EVIDENCE OF PAIN. REPOSITIONED IN BED. VITAL SIGNS REMAIN STABLE. WILL CONTINUE TO MONITOR FOR CHANGES. BED ALARM ON AND CALL LIGHT WITHIN REACH
--- NOTE | 2017-04-26 19:00 | NUR ---
REPORT RECEIVED. ASSESSMENT COMPLETE PER FLOW SHEET. LAYING IN BED, LETHARGIC. 2L NC. NGT PLACEMENT VERIFIED VIA AUSCULTATION, 40 MLS OF BOLIVAR/WHITE RESIDUAL OBTAINED. RADIAL PULSES PALP. POPLITEAL PULSES PALP. HERNANDEZ CATHETER IN PLACE AND SECURED DRAINING CLEAR YELLOW URINE. SCDs ON. DRESSING CDI ON R LEG. SEE FLOW SHEET FOR COMPLETE ASSESSMENT. BED IN LOWEST POSITION. WILL CONTINUE TO MONITOR.
--- NOTE | 2017-04-26 20:16 | NUR ---
LAYING IN BED RESTING. MEDS ADMINISTERED PER EMAR. BED IN LOWEST POSITION. WILL CONTINUE TO MONITOR.
--- NOTE | 2017-04-26 21:30 | NUR ---
LAYING IN BED RESTING. BED IN LOWEST POSITION. WILL CONTINUE TO MONITOR.
--- NOTE | 2017-04-26 22:30 | NUR ---
LAYING IN BED RESTING. NO ACUTE CHANGES AT THIS TIME. CALL LIGHT WITHIN REACH. BED IN LOWEST POSITION. WILL CONTINUE TO MONITOR.
--- NOTE | 2017-04-26 23:00 | NUR ---
REASSESSMENT COMPLETE PER FLOW SHEET, SEE FOR DETAILS. LAYING IN BED RESTING. VSS. BED IN LOWEST POSITION. WILL CONTINUE TO MONITOR.
[2017-04-27] VITALS (22 sets, daily range): BP systolic 138–168; BP diastolic 69–87
--- NOTE | 2017-04-27 01:00 | NUR ---
VSS. NO ACUTE CHANGES NOTED. BED IN LOWEST POSITION. WILL CONTINUE TO MONITOR.
--- NOTE | 2017-04-27 03:00 | NUR ---
REASSESSMENT COMPLETE PER FLOW SHEET, SEE FOR DETAILS. NO ACUTE CHANGES NOTED. VSS. BED IN LOWEST POSITION. WILL CONTINUE TO MONITOR.
--- NOTE | 2017-04-27 05:00 | NUR ---
LAYING IN BED RESTING. VSS. BED IN LOWEST POSITION. WILL CONTINUE TO MONITOR.
--- NOTE | 2017-04-27 06:00 | NUR ---
NO VISITORS AT THIS TIME. VSS. BED IN LOWEST POSITION. WILL CONTINUE TO MONITOR.
--- NOTE | 2017-04-27 08:11 | NUR ---
Wound care consult: Noted excoriation to perineal area. Appears to be from moisture. Redness and peeling. Recommended calmoseptine cream be applied with personal care and continue repositioning off her bottom. Wound care will continue monitoring.
--- NOTE | 2017-04-27 08:40 | NUR ---
PATIENT ONLY RESPONDS TO PAINFUL STIMULI WITH FACIAL GRIMACING. LISA CASILLAS APN IN ROOM TO SEE PATIENT, NEW ORDERS RECEIVED.
--- NOTE | 2017-04-27 09:30 | NUR ---
FOUND PATIENTS PADS WET FROM HERNANDEZ LEAKING. PATIENT BATHED, HERNANDEZ CARE PERFORMED, STAT LOCK PLACED. PATIENT DID NOT AROUSE MUCH ONLY FACIAL GRIMACING AND OCCASIONAL MOAN. PATIENT BUTTOCKS BILATERALLY IS VERY EXCORIATED, PEELING AND OPEN IN MANY AREAS. PATIENT CLEANED AND KAREN'S CREAM TO BUTTOCKS. WOUND CARE ALREADY CONSULTED AND SEEN PATIENT.
--- NOTE | 2017-04-27 10:00 | NUR ---
NOTED PATIENT IS TACHYPNEIC, SPO2 IS 99% AT THIS TIME, AND WILL CONTINUE TO MONITOR.
--- NOTE | 2017-04-27 11:05 | NUR ---
Nutrition follow-up: NGT in place with Osmolite 1.5 patel infusing @ 30 ml/hr; goal rate is 40 ml/hr Labs reviewed RDN following.
--- NOTE | 2017-04-27 11:26 | NUR ---
DINO CARROLL RN PLACED MID LINE CATH IN R UPPER ARM WITHOUT ISSUE.
--- NOTE | 2017-04-27 11:37 | NUR ---
LISA CASILLAS APN CALLED TO NOTIFY OF TACHYPNEIC AND MESSAGE WAS LEFT, WILL FOLLOW UP IF NO RESPONSE.
--- NOTE | 2017-04-27 12:57 | NUR ---
RT JUST FINISHED ABG DRAW. IV IN L FA DC'D, SITE HEALTHY, AND CATH INTACT. PRESSURE DRESSING APPLIED. IV FLUIDS INFUSING VIA R UPPER ARM VIA MID LINE.
--- NOTE | 2017-04-27 13:08 | NUR ---
LISA CASILLAS APN NOTIFIED OF ABG'S, AMMONIA, AND LACTATE ACID. NEW ORDERS RECEIVED.
[2017-04-27 13:37] LABS: APPEARANCE SLT CLOUDY (CLEAR); BILIRUBIN NEGATIVE (NEGATIVE); COLOR YELLOW (YELLOW); GLUCOSE 1000 mg/dL (NEGATIVE); KETONE MODERATE mg/dL (NEGATIVE); LEUKOCYTE ESTERASE 1+ (NEGATIVE); NITRITE NEGATIVE (NEGATIVE); PROTEIN TRACE mg/dL (NEGATIVE); SPECIFIC GRAVITY 1.015 (1.005-1.020); UROBILINOGEN NORMAL (NORMAL); WHITE CELLS - URINE >50 /hpf (0-5)
[2017-04-27 13:38] LABS: BACTERIA FEW /hpf (NONE SEEN); EPITHELIAL CELLS 0-5 /hpf (0-5); RED CELLS - URINE 0-5 /hpf (0-5); YEAST >1+ WITH HYPHAE /hpf (NONE SEEN)
[2017-04-27 13:43] LABS: KETONE - SERUM NEGATIVE (NEGATIVE)
[2017-04-27 13:58] LABS: ALBUMIN 1.9 g/dL (3.4-5.0); ALKALINE PHOSPHATASE 107 U/L (46-116); ALT (SGPT) 12 U/L (10-68); BILIRUBIN - TOTAL 0.43 mg/dL (0.2-1.3); CALCIUM 8.5 mg/dL (8.5-10.1); CHLORIDE - SERUM 111 mmol/L (98-107); CREATININE - SERUM 0.7 mg/dL (0.6-1.3); PROTEIN - SERUM 5.4 g/dL (6.4-8.2); SODIUM 143 mmol/L (136-145); UREA NITROGEN 7 mg/dL (7-18); eGFR NON AFRICAN AMERICAN 90 mL/min (90-120)
[2017-04-27 13:59] LABS: CALC OSMOLALITY 295 mosm/kg (275-300); CARBON DIOXIDE 23.2 mmol/L (21.0-32.0); GLUCOSE 329 mg/dL (74-106); POTASSIUM - SERUM 3.9 mmol/L (3.5-5.1)
--- NOTE | 2017-04-27 14:10 | NUR ---
DR. JAMES CALLED AND INFORMED OF PATIENT CONDITION AND LABS. NEW ORDERS RECEIVED.
[2017-04-27 19:01] LABS: ALBUMIN 1.9 g/dL (3.4-5.0); ALKALINE PHOSPHATASE 105 U/L (46-116); ALT (SGPT) 15 U/L (10-68); CALC OSMOLALITY 296 mosm/kg (275-300); CALCIUM 8.6 mg/dL (8.5-10.1); CARBON DIOXIDE 21.6 mmol/L (21.0-32.0); CHLORIDE - SERUM 111 mmol/L (98-107); CREATININE - SERUM 0.8 mg/dL (0.6-1.3); GLUCOSE 323 mg/dL (74-106); POTASSIUM - SERUM 4.1 mmol/L (3.5-5.1); PRO BNP 604 pg/mL (0-125); PROTEIN - SERUM 5.5 g/dL (6.4-8.2); SODIUM 144 mmol/L (136-145); UREA NITROGEN 7 mg/dL (7-18); eGFR NON AFRICAN AMERICAN 77 mL/min (90-120)
--- NOTE | 2017-04-27 19:45 | NUR ---
SHIFT ASSESSMENT COMPLETE. NO RESPONSE TO STIMULI. PERRLA, 3 MM, BRISK REACTION TO LIGHT. MOUTH OPEN AND MUCOUS MEMBRANES DRY. MOUTH MOISTURIZER APPLIED. S1S2 AUDIBLE. HR 107, SINUS TACH VIA TELEMETRY. TACHYPNEA, RR 31-35 BREATHS/MIN. BOWEL SOUNDS ACTIVE X4. NGT PLACEMENT CHECKED WITH AUSCULTATION AND RESIDUAL. 5 CC RESIDUAL AT THIS TIME. PULMOCARE TF @ 30 ML/HR. CAP REFILL <3 SEC. O2 SAT 98%. GENERALIZED 1+ PITTING EDEMA. R KNEE DRESSING CDI. BUTTOCKS RED AND EXCORIATED WITH SOME PEELING NOTED. REPOSITIONED AND CREAM APPLIED. SCD REMOVED AND SKIN ASSESSED. WNL. TEMP 100.1 AND SKIN IS VERY WARM TO TOUCH. REMOVED BLANKETS AT THIS TIME. WILL CONT TO REASSESS.
--- NOTE | 2017-04-27 21:00 | NUR ---
HERNANDEZ CATH REPLACED BY Pari HARRISON RN. ELECTRICAL CONTINUITY INSPECTOR USED. ORIGINAL CATH WAS NOT DRAINING AND BLADDER WAS HAVING SPASMS. PT DID RESPOND TO PAINFUL STIMULI WHEN INSTERTING THE HERNANDEZ CATH. STAT LOCK IN PLACE. REPOSITIONED FOR COMFORT. WILL CONT TO MONITOR.
[2017-04-27 21:47] LABS: ALBUMIN 1.8 g/dL (3.4-5.0); ALKALINE PHOSPHATASE 107 U/L (46-116); ALT (SGPT) 15 U/L (10-68); BILIRUBIN - TOTAL 0.51 mg/dL (0.2-1.3); CALC OSMOLALITY 295 mosm/kg (275-300); CALCIUM 8.4 mg/dL (8.5-10.1); CARBON DIOXIDE 25.6 mmol/L (21.0-32.0); CHLORIDE - SERUM 111 mmol/L (98-107); CREATININE - SERUM 0.6 mg/dL (0.6-1.3); GLUCOSE 293 mg/dL (74-106); POTASSIUM - SERUM 3.7 mmol/L (3.5-5.1); PROTEIN - SERUM 5.3 g/dL (6.4-8.2); SODIUM 144 mmol/L (136-145); UREA NITROGEN 8 mg/dL (7-18); eGFR NON AFRICAN AMERICAN > 90 mL/min (90-120)
--- NOTE | 2017-04-27 23:00 | NUR ---
PT SLEEPING WITH MOUTH OPEN AT THIS TIME. CRACKLES HEARD, SUCTIONED PT WITH ENT SUCTION. PT TOLERATED WELL. REASSESSMENT COMPLETE AT THIS TIME. PT DOES RESPOND TO PAINFUL STIMULI AND WHEN WE ARE TURNING HER. ONCE SETTLED, SHE SHOWS NO S/S OF PAIN OR DISTRESS. TEMP IS STILL INCREASED. NO BLANKETS AT THIS TIME. NO FURTHER CHANGES NOTED AT THIS TIME. WILL CONT TO MONITOR.
[2017-04-28] VITALS (24 sets, daily range): BP systolic 105–157; BP diastolic 51–84
--- NOTE | 2017-04-28 01:00 | NUR ---
PT RESTING WITH MOUTH OPEN. NO REACTION WHEN SIMPLY TALKING TO PT. NO MOVEMENT IN HANDS OR LEGS AT THIS TIME. SORES NOTED IN MOUTH. ORAL CARE PROVIDED. REPOSITIONED FOR COMFORT. WILL CONT WITH POC.
--- NOTE | 2017-04-28 03:00 | NUR ---
REASSESSMENT COMPLETE. PT AROUSES TO DEEP STIMULI. SHOWS NO S/S OF PAIN AT THIS TIME. CHANGED TF TUBING AND INCREASED TF TO 40 ML/HR. BS ACTIVE IN ALL QUADS. PT SLEEPING WITH MOUTH OPEN. ORAL CARE PROVIDED. REPOSITIONED FOR COMFORT. WILL CONT TO MONITOR.
[2017-04-28 04:18] LABS: BASOPHILS 0.2 % (0-2); EOSINOPHILS 0.4 % (0-7); HEMATOCRIT 32.5 % (36.0-48.0); HEMOGLOBIN 10.9 g/dL (12-16); IMMATURE GRANULOCYTES 0.7 % (0-5); LYMPHOCYTES 6.2 % (15-50); MCH 30.1 pg (26.0-34.0); MCHC 33.5 g/dL (31.0-37.0); MCV 89.8 fL (80.0-100.0); MEAN PLATELET VOLUME 9.3 fL (7.4-10.4); MONOCYTES 13.3 % (2-11); NEUTROPHILS 79.2 % (40-80); RBC 3.62 10x6/uL (4.00-5.40); RDW 14.2 % (11.5-14.5); WBC 13.6 10x3/uL (4.8-10.8)
[2017-04-28 04:21] LABS: PLATELET COUNT 369 10x3/uL (130-400)
[2017-04-28 04:49] LABS: ALBUMIN 1.8 g/dL (3.4-5.0); ALKALINE PHOSPHATASE 117 U/L (46-116); ALT (SGPT) 17 U/L (10-68); BILIRUBIN - TOTAL 0.68 mg/dL (0.2-1.3); CALCIUM 8.5 mg/dL (8.5-10.1); CARBON DIOXIDE 27.1 mmol/L (21.0-32.0); CHLORIDE - SERUM 111 mmol/L (98-107); CREATININE - SERUM 0.7 mg/dL (0.6-1.3); MAGNESIUM - SERUM 1.9 mg/dL (1.8-2.4); POTASSIUM - SERUM 3.4 mmol/L (3.5-5.1); PROTEIN - SERUM 5.7 g/dL (6.4-8.2); SODIUM 146 mmol/L (136-145); UREA NITROGEN 9 mg/dL (7-18); eGFR NON AFRICAN AMERICAN 90 mL/min (90-120)
[2017-04-28 04:50] LABS: CALC OSMOLALITY 295 mosm/kg (275-300); GLUCOSE 211 mg/dL (74-106); PHOSPHOROUS 1.5 mg/dL (2.5-4.9)
--- NOTE | 2017-04-28 05:00 | NUR ---
REPOSITIONED PT FOR COMFORT. UNABLE TO RESPOND TO DEEP STIMULI. VSS. NO CHANGES NOTED AT THIS TIME. WILL CONT TO MONITOR.
[2017-04-28 09:32] LABS: ALBUMIN 1.6 g/dL (3.4-5.0); ALKALINE PHOSPHATASE 112 U/L (46-116); ALT (SGPT) 20 U/L (10-68); BILIRUBIN - TOTAL 0.52 mg/dL (0.2-1.3); CALCIUM 8.2 mg/dL (8.5-10.1); CARBON DIOXIDE 27.4 mmol/L (21.0-32.0); CHLORIDE - SERUM 112 mmol/L (98-107); CREATININE - SERUM 0.7 mg/dL (0.6-1.3); POTASSIUM - SERUM 3.6 mmol/L (3.5-5.1); PROTEIN - SERUM 5.1 g/dL (6.4-8.2); SODIUM 145 mmol/L (136-145); UREA NITROGEN 10 mg/dL (7-18); eGFR NON AFRICAN AMERICAN 90 mL/min (90-120)
[2017-04-28 09:33] LABS: CALC OSMOLALITY 296 mosm/kg (275-300); GLUCOSE 268 mg/dL (74-106)
--- NOTE | 2017-04-28 10:46 | NUR ---
PATIENT TO RADIOLOGY FOR CT SCAN.
--- NOTE | 2017-04-28 11:06 | NUR ---
PT RETURNED FROM CT.
--- NOTE | 2017-04-28 14:36 | OP ---
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 PROCEDURES: Removal of prior placed dynamics with spacer, curettage, excision and debridement of all and nonviable-appearing tissue that did include skin, subcutaneous tissue, portions of fat, fascia, muscle and bone greater than 20 cm and lastly application of a static interlocking polymethyl methacrylate cement spacer laden with tobramycin. OPERATIVE SUMMARY IN DETAIL: After obtaining the appropriate preoperative orthopedic surgery consent as well as anesthetic consultation, evaluation and clearance, the patient was brought to the operating room and placed on the operating table in supine position. After general laryngeal mask was administered, tourniquet was placed about the proximal aspect of the right lower extremity. Right lower extremity was then prepped and draped in a routine sterile fashion. Again, cultures were taken at this point as they seem to be different each time. Serial and sequential curettage and debridement was then followed by elongating the incision line for removal of the previously placed articulated spacer. The articulated spacer was removed in its entirety and copious amounts of bone fragments as well as nonviable-appearing tissue and bone were removed with a combination of scalpel, rongeurs as well as curettage. It was felt that all bone was removed. The proximal and distal ends of the femur and tibia were reamed respectively for placement of a 9-mm x 200 femoral magno for more static providing spacer, 2 packs of cement were allowed to be doughy and then were packed in about the area of the knee cavity not allowing them to adhere directly to bone and maintain the doughy status until the very end. Having completed this, the wound was closed with a combination of #1 Vicryl, 2-0 Prolene and skin db. Sterile dressings were applied. The patient was awakened and taken to the recovery room in stable condition. All final needle and sponge counts were correct. TRANSINT:[id number] Voice Confirmation ID: [id number] DOCUMENT ID: [id number] SHAYLA MERCER MD at 1436 CC: [id number] DICTATION DATE: 04/28/17 1010 PROP DRAWER: 04/28/17 1131 ADM IN [facility] [address] [place] [address]
[2017-04-28 15:45] LABS: ALBUMIN 1.4 g/dL (3.4-5.0); ALKALINE PHOSPHATASE 103 U/L (46-116); ALT (SGPT) 19 U/L (10-68); BILIRUBIN - TOTAL 0.49 mg/dL (0.2-1.3); CALC OSMOLALITY 295 mosm/kg (275-300); CALCIUM 7.9 mg/dL (8.5-10.1); CARBON DIOXIDE 28.6 mmol/L (21.0-32.0); CHLORIDE - SERUM 109 mmol/L (98-107); CREATININE - SERUM 0.7 mg/dL (0.6-1.3); GLUCOSE 245 mg/dL (74-106); POTASSIUM - SERUM 3.2 mmol/L (3.5-5.1); PROTEIN - SERUM 4.8 g/dL (6.4-8.2); SODIUM 145 mmol/L (136-145); UREA NITROGEN 11 mg/dL (7-18); eGFR NON AFRICAN AMERICAN 90 mL/min (90-120)
--- NOTE | 2017-04-28 17:00 | NUR ---
PATIENT SUCTION VIA TRACH AND ORALLY. REPOSITIONED FOR COMFORT AND SKIN PROTECTANT. PATIENT DENIES ANY PAIN BY KNODDING HIS HEAD.
--- NOTE | 2017-04-28 19:45 | NUR ---
SHIFT ASSESSMENT COMPLETE. PT AROUSES TO DEEP STIMULI BY TRYING TO OPEN HER EYES AND SHE WRINKLED HER FOREHEAD. SLEEPING ON HER R SIDE AT THIS TIME WITH HER MOUTH OPEN. NGT PLACEMENT CHECKED WITH AUSCULATATION AND SHE HAD 5 CC RESIDUAL. OSMOLITE 1.5 TF SET AT A RATE OF 40 CC/HR. NS WITH 1 AMP HCO3 @ 100 ML/HR AND BANANA BAG AT 125 ML/HR TO R UPPER ARM MIDLINE CATH. S1S2 AUDIBLE. HR 92 BPM NORMAL SINUS RHYTHM. CRACKLES HEARD THROUGHOUT ALL LOBES. PT IS BREATHING AT A RATE OF 20 BREATHS PER MIN. BOWEL SOUNDS ACTIVE IN ALL QUADS. HERNANDEZ CATH DRAINING CLEAR YELLOW URINE. R KNEE DRESSING CDI. BUTTOCKS IS RED AND EXCORIATED WITH PEELING NOTED. BLOOD SUGAER 193. ADMIN 4 UNITS HUMALOG PER SLIDING SCALE. NO SIGNS OF ACUTE DISTRESS AT THIS TIME. WILL CONT WITH POC.
--- NOTE | 2017-04-28 21:00 | NUR ---
REPOSITONED PT FOR COMFORT. SUCTIONED THICK, BOLIVAR SECRETIONS. ORAL CARE PROVIDED. SWAB CAPS IN USE AND IV TUBES LABELED. VSS. BED IN LOWEST POSITION. PT IN SIGHT OF NURSE'S STATION.
--- NOTE | 2017-04-28 23:00 | NUR ---
REASSESSMENT COMPLETE. WHEN REPOSITONING PT SHE WAS MORE VERBAL THAN SHE HAS BEEN. SHE GROANS WHEN SHE IS MOVED AND WRINKLES HER FOREHEAD. S1S2 AUDIBLE. HR 107, SINUS TACH VIA TELEMETRY. SHALLOW RR. MOUTH OPEN. ORAL CARE PROVIDED. BOWEL SOUNDS ACTIVE IN ALL QUADS. SHE IS UNABLE TO OPEN HER EYES WHEN SPOKEN TO, BUT THERE IS AN EFFORT NOTED. HERNANDEZ CATH DRAINING CLEAR YELLOW URINE. BED IN LOWEST POSITION. LAB AT BEDSIDE. WILL CONT TO MONITOR.
[2017-04-28 23:52] LABS: ALBUMIN 1.6 g/dL (3.4-5.0); ALKALINE PHOSPHATASE 98 U/L (46-116); ALT (SGPT) 19 U/L (10-68); BILIRUBIN - TOTAL 0.52 mg/dL (0.2-1.3); CALC OSMOLALITY 298 mosm/kg (275-300); CALCIUM 7.9 mg/dL (8.5-10.1); CARBON DIOXIDE 27.2 mmol/L (21.0-32.0); CHLORIDE - SERUM 113 mmol/L (98-107); CREATININE - SERUM 0.6 mg/dL (0.6-1.3); GLUCOSE 238 mg/dL (74-106); POTASSIUM - SERUM 3.6 mmol/L (3.5-5.1); PROTEIN - SERUM 4.8 g/dL (6.4-8.2); SODIUM 146 mmol/L (136-145); UREA NITROGEN 13 mg/dL (7-18); eGFR NON AFRICAN AMERICAN > 90 mL/min (90-120)
[2017-04-29] VITALS (24 sets, daily range): BP systolic 107–160; BP diastolic 55–86
--- NOTE | 2017-04-29 03:00 | NUR ---
REASSESSMENT COMPLETE. SHALLOW RESPIRATIONS. SUCTIONED THICK, BOLIVAR SECRETIONS. S12S AUDIBLE. VSS. ORAL CARE PROVIDED. REPOSITIONED FOR COMFORT. X-RAY AT BEDSIDE. BED IN LOWEST POSITION. WILL CONT TO MONITOR.
[2017-04-29 04:47] LABS: BASOPHILS 0.3 % (0-2); EOSINOPHILS 2.1 % (0-7); HEMATOCRIT 27.5 % (36.0-48.0); HEMOGLOBIN 9.2 g/dL (12-16); IMMATURE GRANULOCYTES 1.3 % (0-5); MCH 30.2 pg (26.0-34.0); MCHC 33.5 g/dL (31.0-37.0); MCV 90.2 fL (80.0-100.0); MEAN PLATELET VOLUME 9.1 fL (7.4-10.4); NEUTROPHILS 75.3 % (40-80); PLATELET COUNT 363 10x3/uL (130-400); RBC 3.05 10x6/uL (4.00-5.40); RDW 14.5 % (11.5-14.5)
--- NOTE | 2017-04-29 05:00 | NUR ---
ORAL CARE PROVIDED. TRIED TO AROUSE PT BY SHOUTING HER NAME. PT WRINKLED FOREHEAD AND SAID "YEAH" WHICH IS A BIG CHANGE. SHE IS MORE VERBAL AT THIS TIME AND HER FACIAL EXPRESSION IS CONGRUENT WITH WHAT SHE IS TRYING TO SAY. EXTENSION OF HER L LEG WAS NOTED ALSO WHEN SPEAKING TO HER. SHE IS RESTING WITH HER MOUTH OPEN AT THIS TIME. BED IN LOWEST POSITION. WILL CONT TO MONITOR.
[2017-04-29 05:02] LABS: ALBUMIN 1.9 g/dL (3.4-5.0); ALKALINE PHOSPHATASE 114 U/L (46-116); BILIRUBIN - TOTAL 0.62 mg/dL (0.2-1.3); CALCIUM 8.1 mg/dL (8.5-10.1); CARBON DIOXIDE 25.1 mmol/L (21.0-32.0); CHLORIDE - SERUM 110 mmol/L (98-107); CREATININE - SERUM 0.7 mg/dL (0.6-1.3); POTASSIUM - SERUM 3.8 mmol/L (3.5-5.1); PROTEIN - SERUM 5.2 g/dL (6.4-8.2); SODIUM 143 mmol/L (136-145); UREA NITROGEN 15 mg/dL (7-18); eGFR NON AFRICAN AMERICAN 90 mL/min (90-120)
[2017-04-29 05:07] LABS: ALT (SGPT) 24 U/L (10-68); CALC OSMOLALITY 302 mosm/kg (275-300); GLUCOSE 398 mg/dL (74-106)
--- NOTE | 2017-04-29 07:29 | NUR ---
NGT PLACEMENT VERIFICATION VIA AUSCULTATION. ALSO RESIDUAL NOTED AT 0ML. WILL CONTINUE PLAN OF CARE.
--- NOTE | 2017-04-29 08:23 | NUR ---
PT NOTED TO HAVE CHANGE OF LEVEL OF CONSCIOUSNESS TO BE MORE LETHARGIC. ONLY ABLE TO WAKE PT UP VIA STERNAL RUB AND PT ONLY MOANS AND FACIAL GRAIMACING. PT DOES NOT OPEN EYES AND DOES NOT FOLLOW SIMPLE COMMANDS. DR DALLAS CALLED AND NOTIFIED. NO NEW ORDERS RECIEVED.
--- NOTE | 2017-04-29 10:03 | NUR ---
NUTRITION MONITORING & EVAL CHART REVIEWED, PT TOLERATING OSMOLITE 1.5 BRANDON @ GOAL RATE 40 CC/HR. WILL CONTINUE TO PROVIDE OSMOLITE, MONITOR PT PROGRESS. RD FOLLOWING
--- NOTE | 2017-04-29 10:22 | NUR ---
NO ACUTE DISTERSS NOTED. NO CHANGE. WILL CONTINUE PLAN OF CARE.
[2017-04-29 10:29] LABS: ALBUMIN 1.7 g/dL (3.4-5.0); ALKALINE PHOSPHATASE 103 U/L (46-116); ALT (SGPT) 24 U/L (10-68); CALC OSMOLALITY 304 mosm/kg (275-300); CALCIUM 8.1 mg/dL (8.5-10.1); CARBON DIOXIDE 25.7 mmol/L (21.0-32.0); CHLORIDE - SERUM 110 mmol/L (98-107); CREATININE - SERUM 0.7 mg/dL (0.6-1.3); GLUCOSE 368 mg/dL (74-106); POTASSIUM - SERUM 3.8 mmol/L (3.5-5.1); PROTEIN - SERUM 4.8 g/dL (6.4-8.2); SODIUM 145 mmol/L (136-145); UREA NITROGEN 15 mg/dL (7-18); eGFR NON AFRICAN AMERICAN 90 mL/min (90-120)
--- NOTE | 2017-04-29 11:10 | NUR ---
NOTED RESPIRATORY CULTURE GROWING 2+ GRAM NEGATIVE RODS. DR WAGGONER NOTIFIED.
--- NOTE | 2017-04-29 12:16 | NUR ---
FAMILY AT BEDSIDE AT THIS TIME. UPDATE GIVEN. DR WAGGONER HAS SPOKEN WITH PTS DAUGHTER. NO ACUTE DISTRESS NOTED. NOTED PT TO STILL NOT FOLLOW ANY SIMPLE COMMANDS OR OPEN EYES, PT DOES HAVE FACIAL GRIMACING WELL MOANS AND WIMPERS TO DISCOMFORT. WILL CONTINUE PLAN OF CARE.
--- NOTE | 2017-04-29 14:05 | NUR ---
NO ACUTE DISTRESS NOTED. PT NOTED MOANING OUTLOUD. REPOSITIONING PROVIDED Q2H. ORAL CARE PROVIDED Q2H. WILL CONTINUE PLAN OF CARE.
--- NOTE | 2017-04-29 16:55 | NUR ---
NO ACUTE DISTRESS NOTED. MOANING OUTLOUD NOTED, UNABLE TO MAKE OUT SOUNDS INTO WORDS FROM PT. PT NOT FOLLOWING SIMPLE COMMANDS. TURNED Q2H. WILL CONTINUE PLAN OF CARE.
[2017-04-29 17:31] LABS: ALBUMIN 2.1 g/dL (3.4-5.0); ALKALINE PHOSPHATASE 125 U/L (46-116); ALT (SGPT) 25 U/L (10-68); BILIRUBIN - TOTAL 0.63 mg/dL (0.2-1.3); CALC OSMOLALITY 297 mosm/kg (275-300); CALCIUM 8.5 mg/dL (8.5-10.1); CARBON DIOXIDE 26.9 mmol/L (21.0-32.0); CHLORIDE - SERUM 110 mmol/L (98-107); CREATININE - SERUM 0.8 mg/dL (0.6-1.3); GLUCOSE 270 mg/dL (74-106); POTASSIUM - SERUM 3.5 mmol/L (3.5-5.1); PROTEIN - SERUM 5.6 g/dL (6.4-8.2); SODIUM 144 mmol/L (136-145); UREA NITROGEN 16 mg/dL (7-18); eGFR NON AFRICAN AMERICAN 77 mL/min (90-120)
--- NOTE | 2017-04-29 18:17 | NUR ---
FAMILY AT BEDSIDE AT THIS TIME. NO ACUTE DISTRESS NOTED. WILL CONTINUE PLAN OF CARE.
--- NOTE | 2017-04-29 19:30 | NUR ---
RECEIVED CARE OF PT, ASSESSMENT PER FLOWSHEET. PT RESPONDS TO PAINFUL STIMULI ONLY BY WITHDRAWING-NO VERBALIZATION OTHER THAN MOANING NOTED, DOES NOT OPEN EYES, FOLLOW COMMANDS, OR ANSWER QUESTIONS. PPP, HR ST AT A RATE OF 110 WITH OCC PAC'S NOTED, NGT WITH OSMOLITE 1.5 INFUSING AT 40CC/HR, RESIDUAL OF 25CC NOTED, PLACEMENT VERIFIED WITH SMALL AIR BOLUS, TUBING RE-SECURED TO BRIDGE OF NOSE, CRACKLES AUSCULTATED BILATERALLY WITH DIMINISHED BASES, RT LEG WRAPPED FROM MID THIGH TO CALF IN LOLIS WRAP-CDI. HERNANDEZ CATH PATENT WITH YELLOW URINE DRAINING, BED LOW, VSS.
--- NOTE | 2017-04-29 21:20 | NUR ---
PT FAMILY IN FOR VISITATION, POSITIONED FOR COMFORT, UPDATE GIVEN, ALL QUESTIONS ANSWERED, FAMILY DENIES ANY OTHER NEEDS AT THIS TIME.
[2017-04-29 22:42] LABS: ALBUMIN 1.8 g/dL (3.4-5.0); ALKALINE PHOSPHATASE 109 U/L (46-116); ALT (SGPT) 22 U/L (10-68); BILIRUBIN - TOTAL 0.55 mg/dL (0.2-1.3); CALC OSMOLALITY 296 mosm/kg (275-300); CARBON DIOXIDE 30.5 mmol/L (21.0-32.0); CHLORIDE - SERUM 109 mmol/L (98-107); CREATININE - SERUM 0.8 mg/dL (0.6-1.3); GLUCOSE 262 mg/dL (74-106); POTASSIUM - SERUM 3.5 mmol/L (3.5-5.1); PROTEIN - SERUM 4.8 g/dL (6.4-8.2); SODIUM 144 mmol/L (136-145); UREA NITROGEN 14 mg/dL (7-18); eGFR NON AFRICAN AMERICAN 77 mL/min (90-120)
--- NOTE | 2017-04-29 23:45 | NUR ---
REASSESSMENT PER FLOWSHEET, NO ACUTE CHANGES NOTED AT THIS TIME. HR ST ON CM AT A RATE OF 101 WITH OCC PAC'S NOTED, PT POSITIONED FOR COMFORT AND ORAL CARE PROVIDED.
[2017-04-30] VITALS (24 sets, daily range): BP systolic 116–150; BP diastolic 61–86
--- NOTE | 2017-04-30 01:03 | NUR ---
ORAL CARE PERFORMED WITH PERIDEX ORDERED
--- NOTE | 2017-04-30 01:20 | NUR ---
PT RESTING IN BED WITH EYES CLOSED, HR ST ON CM, VSS, CONT POC.
--- NOTE | 2017-04-30 02:56 | NUR ---
COMPLETE BATH AND LINEN CHANGE DONE, ORAL CARE PROVIDED, POSITIONED SUPPORTED WITH PILLOWS, VSS.
[2017-04-30 04:09] LABS: BASOPHILS 0.5 % (0-2); EOSINOPHILS 3.5 % (0-7); HEMATOCRIT 27.6 % (36.0-48.0); HEMOGLOBIN 9.1 g/dL (12-16); IMMATURE GRANULOCYTES 0.9 % (0-5); MCH 29.7 pg (26.0-34.0); MCV 90.2 fL (80.0-100.0); MEAN PLATELET VOLUME 9.1 fL (7.4-10.4); MONOCYTES 12.7 % (2-11); NEUTROPHILS 71.4 % (40-80); RBC 3.06 10x6/uL (4.00-5.40); RDW 14.5 % (11.5-14.5); WBC 8.7 10x3/uL (4.8-10.8)
[2017-04-30 04:15] LABS: PLATELET COUNT 450 10x3/uL (130-400)
[2017-04-30 04:31] LABS: ALBUMIN 1.8 g/dL (3.4-5.0); ALKALINE PHOSPHATASE 117 U/L (46-116); ALT (SGPT) 21 U/L (10-68); BILIRUBIN - TOTAL 0.55 mg/dL (0.2-1.3); CALC OSMOLALITY 296 mosm/kg (275-300); CALCIUM 8.3 mg/dL (8.5-10.1); CARBON DIOXIDE 28.4 mmol/L (21.0-32.0); CHLORIDE - SERUM 109 mmol/L (98-107); CREATININE - SERUM 0.7 mg/dL (0.6-1.3); GLUCOSE 257 mg/dL (74-106); MAGNESIUM - SERUM 1.7 mg/dL (1.8-2.4); PHOSPHOROUS 1.8 mg/dL (2.5-4.9); POTASSIUM - SERUM 3.2 mmol/L (3.5-5.1); PROTEIN - SERUM 5.1 g/dL (6.4-8.2); SODIUM 144 mmol/L (136-145); UREA NITROGEN 15 mg/dL (7-18); eGFR NON AFRICAN AMERICAN 90 mL/min (90-120)
--- NOTE | 2017-04-30 05:24 | NUR ---
POTASSIUM, MAGNESIUM, AND PHOSPHORUS TREATMENT INITIATED PER ELECTROLYTE PROTOCOL S/S.
--- NOTE | 2017-04-30 09:08 | NUR ---
SPOKE WITH DR. WAGGONER ABOUT POSSIBLE LP PROCEDURE WITH NEW ORDERS RECD.
[2017-04-30 09:46] LABS: ALBUMIN 1.9 g/dL (3.4-5.0); ALKALINE PHOSPHATASE 110 U/L (46-116); ALT (SGPT) 24 U/L (10-68); BILIRUBIN - TOTAL 0.49 mg/dL (0.2-1.3); CALC OSMOLALITY 291 mosm/kg (275-300); CALCIUM 8.4 mg/dL (8.5-10.1); CHLORIDE - SERUM 110 mmol/L (98-107); CREATININE - SERUM 0.7 mg/dL (0.6-1.3); GLUCOSE 234 mg/dL (74-106); PROTEIN - SERUM 5.1 g/dL (6.4-8.2); SODIUM 142 mmol/L (136-145); UREA NITROGEN 15 mg/dL (7-18); eGFR NON AFRICAN AMERICAN 90 mL/min (90-120)
[2017-04-30 15:15] LABS: ALBUMIN 1.9 g/dL (3.4-5.0); ALKALINE PHOSPHATASE 116 U/L (46-116); ALT (SGPT) 26 U/L (10-68); BILIRUBIN - TOTAL 0.58 mg/dL (0.2-1.3); CALC OSMOLALITY 288 mosm/kg (275-300); CALCIUM 8.5 mg/dL (8.5-10.1); CARBON DIOXIDE 30.4 mmol/L (21.0-32.0); CHLORIDE - SERUM 105 mmol/L (98-107); CREATININE - SERUM 0.8 mg/dL (0.6-1.3); GLUCOSE 256 mg/dL (74-106); POTASSIUM - SERUM 3.9 mmol/L (3.5-5.1); PROTEIN - SERUM 5.3 g/dL (6.4-8.2); SODIUM 139 mmol/L (136-145); UREA NITROGEN 18 mg/dL (7-18); eGFR NON AFRICAN AMERICAN 77 mL/min (90-120)
[2017-04-30 22:05] LABS: ALBUMIN 2.2 g/dL (3.4-5.0); ALKALINE PHOSPHATASE 117 U/L (46-116); ALT (SGPT) 26 U/L (10-68); BILIRUBIN - TOTAL 0.63 mg/dL (0.2-1.3); CALC OSMOLALITY 281 mosm/kg (275-300); CALCIUM 8.8 mg/dL (8.5-10.1); CARBON DIOXIDE 30.4 mmol/L (21.0-32.0); CHLORIDE - SERUM 107 mmol/L (98-107); CREATININE - SERUM 0.7 mg/dL (0.6-1.3); POTASSIUM - SERUM 4.4 mmol/L (3.5-5.1); PROTEIN - SERUM 5.6 g/dL (6.4-8.2); SODIUM 140 mmol/L (136-145); UREA NITROGEN 14 mg/dL (7-18); eGFR NON AFRICAN AMERICAN 90 mL/min (90-120)
[2017-04-30 22:06] LABS: GLUCOSE 127 mg/dL (74-106)
--- NOTE | 2017-04-30 23:30 | NUR ---
1929- REPORT RECVD. CARE ASSUMED. INITIAL ASSMNT COMPLETED. SEE FLOWSHEET FOR ALL FINDINGS. LETHARGIC. CONFUSED. SLURRED SPEECH. PERRLA. RESP UNLABORED. LUNGS DIM THRU OUT. SPO2 98% ON RA. SR-ST ON THE MONITOR. PULSES PALP X4. GENERALIZED EDEMA NOTED. AFEBRILE. SCDS IN USE. ABD SOFT, BSA X4. TF INFUSING TO NGT AT GOAL. TURNED AND REPOSITIONED. ORAL CARE PROVIDED. F/C PATENT WITH CLR YELLOW UOP. HOB UP. C/L IN REACH. BED ALARM ON. CONT CURRENT POC. 2129- FAMILY AT BEDSIDE. UPDATE GIVEN. TEACHING COMPLETED. TURNED AND REPOSITONED. HS MEDS GIVEN. ROUTINE F/C CARE PROVIDED. CONT CURRENT POC. 2329- REASSESSMENT COMPLETED. SEE FLOWSHEET FOR ALL FINDINGS. LETHARGIC. CONFUSED. SLURRED SPEECH. PERRLA. RESP UNLABORED. LUNGS DIM THRU OUT. SPO2 98% ON RA. SR-ST ON THE MONITOR. PULSES PALP X4. GENERALIZED EDEMA NOTED. AFEBRILE. SCDS IN USE. ABD SOFT, BSA X4. TF INFUSING TO NGT AT GOAL. TURNED AND REPOSITIONED. ORAL CARE PROVIDED. F/C PATENT WITH CLR YELLOW UOP. HOB UP. C/L IN REACH. BED ALARM ON. CONT CURRENT POC.
[2017-05-01] VITALS (24 sets, daily range): BP systolic 106–148; BP diastolic 63–91
--- NOTE | 2017-05-01 01:20 | NUR ---
TURNED AND REPOSITIONED. BIPAP BREAK WITH PO FLUIDS OFFERED. NONE TAKEN. VSS. SR ON THE MONITOR. HOB UP. C/L IN REACH. CONT CURRENT POC.
--- NOTE | 2017-05-01 01:30 | NUR ---
TURNED AND REPOSITIONED. ORAL CARE PROVIDED. VSS. NO DISTRESS. HOB UP. CONT POC.
--- NOTE | 2017-05-01 03:30 | NUR ---
REASSESSMENT COMPLETED. SEE FLOWSHEET FOR ALL FINDINGS. LETHARGIC. CONFUSED. SLURRED SPEECH. PERRLA. RESP UNLABORED. LUNGS DIM THRU OUT. SPO2 98% ON RA. SR-ST ON THE MONITOR. PULSES PALP X4. GENERALIZED EDEMA NOTED. AFEBRILE. SCDS IN USE. ABD SOFT, BSA X4. TF INFUSING TO NGT AT GOAL. TURNED AND REPOSITIONED. ORAL CARE PROVIDED. F/C PATENT WITH CLR YELLOW UOP. HOB UP. C/L IN REACH. BED ALARM ON. CONT CURRENT POC.
[2017-05-01 04:19] LABS: BASOPHILS 0.3 % (0-2); EOSINOPHILS 4.6 % (0-7); HEMATOCRIT 28.5 % (36.0-48.0); HEMOGLOBIN 9.3 g/dL (12-16); IMMATURE GRANULOCYTES 0.9 % (0-5); LYMPHOCYTES 12.9 % (15-50); MCH 29.3 pg (26.0-34.0); MCHC 32.6 g/dL (31.0-37.0); MCV 89.9 fL (80.0-100.0); MONOCYTES 10.3 % (2-11); PLATELET COUNT 524 10x3/uL (130-400); RBC 3.17 10x6/uL (4.00-5.40); RDW 14.4 % (11.5-14.5); WBC 9.7 10x3/uL (4.8-10.8)
[2017-05-01 04:33] LABS: ALBUMIN 2.1 g/dL (3.4-5.0); ALKALINE PHOSPHATASE 136 U/L (46-116); ALT (SGPT) 27 U/L (10-68); BILIRUBIN - TOTAL 0.73 mg/dL (0.2-1.3); CALC OSMOLALITY 281 mosm/kg (275-300); CALCIUM 8.8 mg/dL (8.5-10.1); CARBON DIOXIDE 28.6 mmol/L (21.0-32.0); CHLORIDE - SERUM 104 mmol/L (98-107); CREATININE - SERUM 0.7 mg/dL (0.6-1.3); MAGNESIUM - SERUM 1.9 mg/dL (1.8-2.4); POTASSIUM - SERUM 4.8 mmol/L (3.5-5.1); PROTEIN - SERUM 5.5 g/dL (6.4-8.2); SODIUM 138 mmol/L (136-145); UREA NITROGEN 13 mg/dL (7-18); eGFR NON AFRICAN AMERICAN 90 mL/min (90-120)
[2017-05-01 04:35] LABS: GLUCOSE 204 mg/dL (74-106); PHOSPHOROUS 3.3 mg/dL (2.5-4.9)
--- NOTE | 2017-05-01 05:22 | NUR ---
REPOSITIONED. REMAINS CONFUSED. CALLS OUT. VSS. HOB UP. NO DISTRESS. CONT CURRENT POC.
[2017-05-01 09:26] LABS: GLUCOSE 381 mg/dL (74-106)
[2017-05-01 09:27] LABS: ALBUMIN 2.1 g/dL (3.4-5.0); ALKALINE PHOSPHATASE 138 U/L (46-116); ALT (SGPT) 27 U/L (10-68); CALC OSMOLALITY 295 mosm/kg (275-300); CALCIUM 8.5 mg/dL (8.5-10.1); CARBON DIOXIDE 25.6 mmol/L (21.0-32.0); CHLORIDE - SERUM 107 mmol/L (98-107); CREATININE - SERUM 0.8 mg/dL (0.6-1.3); POTASSIUM - SERUM 5.2 mmol/L (3.5-5.1); SODIUM 140 mmol/L (136-145); UREA NITROGEN 15 mg/dL (7-18); eGFR NON AFRICAN AMERICAN 77 mL/min (90-120)
[2017-05-01 10:11] LABS: T4 THYROXIN - FREE 1.19 ng/dL (0.76-1.46); THYROID STIMULATING HORMONE 2.25 uIU/mL (0.36-3.74)
--- NOTE | 2017-05-01 12:35 | NUR ---
FSBS >400 RECHECK >400 STAT GLUCOSE ORDERED AND DELIVERED TO LAB.
[2017-05-01 15:16] LABS: ALBUMIN 2.1 g/dL (3.4-5.0); ANION GAP 7.7 mmol/L (8-16); BILIRUBIN - TOTAL 0.58 mg/dL (0.2-1.3); CALCIUM 8.9 mg/dL (8.5-10.1); CARBON DIOXIDE 30.5 mmol/L (21.0-32.0); PROTEIN - SERUM 5.8 g/dL (6.4-8.2)
[2017-05-01 15:18] LABS: CREATININE - SERUM 1.1 mg/dL (0.6-1.3); POTASSIUM - SERUM 4.2 mmol/L (3.5-5.1)
[2017-05-01 21:48] LABS: ANION GAP 9.1 mmol/L (8-16); BILIRUBIN - TOTAL 0.58 mg/dL (0.2-1.3); CALCIUM 8.8 mg/dL (8.5-10.1); CARBON DIOXIDE 29.8 mmol/L (21.0-32.0); CREATININE - SERUM 0.9 mg/dL (0.6-1.3); PROTEIN - SERUM 5.5 g/dL (6.4-8.2)
[2017-05-01 22:00] LABS: POTASSIUM - SERUM 4.9 mmol/L (3.5-5.1)
--- NOTE | 2017-05-01 23:30 | NUR ---
1929- REPORT RECVD. CARE ASSUMED. INITIAL ASSMNT COMPLETED. SEE FLOWSHEET ALL FINDINGS. LETHARGIC. CONFUSED. SLURRED SPEECH. PERRLA. RESP UNLABORED. LUNGS DIM THRU OUT. SPO2 98% ON RA. SR-ST ON THE MONITOR. PULSES PALP X4. GENERALIZED EDEMA NOTED. AFEBRILE. SCDS IN USE. ABD SOFT, BSA X4. TF INFUSING TO NGT AT GOAL. TURNED AND REPOSITIONED. ORAL CARE PROVIDED. F/C PATENT WITH CLR YELLOW UOP. HOB UP. C/L IN REACH. BED ALARM ON. CONT CURRENT POC. 2129- NO VISITORS. NO SIG CHANGES SEEN. TURNED AND REPOSITONED. HS MEDS GIVEN. ROUTINE F/C CARE PROVIDED. CONT [facility] POC. 2329- REASSESSMENT COMPLETED. SEE FLOWSHEET FOR ALL FINDINGS. LETHARGIC. CONFUSED. SLURRED SPEECH. PERRLA. RESP UNLABORED. LUNGS DIM THRU OUT. SPO2 98% ON RA. SR-ST ON THE MONITOR. PULSES PALP X4. GENERALIZED EDEMA NOTED. AFEBRILE. SCDS IN USE. ABD SOFT, BSA X4. TF INFUSING TO NGT AT GOAL. TURNED AND REPOSITIONED. ORAL CARE PROVIDED. F/C PATENT WITH CLR YELLOW UOP. HOB UP. C/L IN REACH. BED ALARM ON. CONT CURRENT POC.
[2017-05-02] VITALS (25 sets, daily range): BP systolic 102–142; BP diastolic 55–80
--- NOTE | 2017-05-02 01:25 | NUR ---
TURNED AND REPOSITIONED. ORAL CARE PROVIDED. REMAINS CONFUSED. VSS. NO DISTRESS. HOB UP. CONT CURRENT POC.
[2017-05-02 04:22] LABS: BASOPHILS 0.3 % (0-2); EOSINOPHILS 3.1 % (0-7); HEMATOCRIT 28.8 % (36.0-48.0); HEMOGLOBIN 9.4 g/dL (12-16); IMMATURE GRANULOCYTES 1.8 % (0-5); LYMPHOCYTES 12.3 % (15-50); MCH 29.6 pg (26.0-34.0); MCHC 32.6 g/dL (31.0-37.0); MCV 90.6 fL (80.0-100.0); MONOCYTES 11.7 % (2-11); NEUTROPHILS 70.8 % (40-80); RBC 3.18 10x6/uL (4.00-5.40); RDW 14.1 % (11.5-14.5); WBC 11.6 10x3/uL (4.8-10.8)
[2017-05-02 04:30] LABS: PLATELET COUNT 631 10x3/uL (130-400)
[2017-05-02 04:40] LABS: ALBUMIN 2.1 g/dL (3.4-5.0); ALKALINE PHOSPHATASE 166 U/L (46-116); ALT (SGPT) 31 U/L (10-68); BILIRUBIN - TOTAL 0.66 mg/dL (0.2-1.3); CALC OSMOLALITY 280 mosm/kg (275-300); CALCIUM 8.9 mg/dL (8.5-10.1); CARBON DIOXIDE 28.8 mmol/L (21.0-32.0); CHLORIDE - SERUM 101 mmol/L (98-107); CREATININE - SERUM 0.8 mg/dL (0.6-1.3); GLUCOSE 196 mg/dL (74-106); MAGNESIUM - SERUM 2.1 mg/dL (1.8-2.4); POTASSIUM - SERUM 4.4 mmol/L (3.5-5.1); PROTEIN - SERUM 5.6 g/dL (6.4-8.2); SODIUM 137 mmol/L (136-145); UREA NITROGEN 18 mg/dL (7-18); eGFR NON AFRICAN AMERICAN 77 mL/min (90-120)
[2017-05-02 04:53] LABS: PHOSPHOROUS 4.5 mg/dL (2.5-4.9)
--- NOTE | 2017-05-02 05:00 | NUR ---
SPOKE WITH FAMILY VIA PHONE. PASSWORD VERIFIED. UPDATE GIVEN. REPOSITIONED. VSS. NO CHANGES. CONT POC.
--- NOTE | 2017-05-02 05:30 | NUR ---
DR MOODY AT BEDSIDE.
--- NOTE | 2017-05-02 07:00 | NUR ---
PT AROUSES EASILY, DOES NOT RESPOND VOCALLY, PUPILS REACTIVE, RESPIRATIONS EVEN AND UNLABORED, NG IN PLACE PER ASPRIATION AND AUSCULTATION, RUE MIDLINE IN PLACE 1/2NS AT 30ML/HR, REPOSITIONED, VSS, WILL CON TINUE TO MONITOR
--- NOTE | 2017-05-02 09:00 | NUR ---
PT REPOSITIONED, VSS, ORAL CARE PROVIDED, WILL CONTINUE TO MONITOR
[2017-05-02 09:29] LABS: ALBUMIN 2.1 g/dL (3.4-5.0); ANION GAP 9.8 mmol/L (8-16); BILIRUBIN - TOTAL 0.63 mg/dL (0.2-1.3); CARBON DIOXIDE 28.2 mmol/L (21.0-32.0); CREATININE - SERUM 0.9 mg/dL (0.6-1.3); PROTEIN - SERUM 5.7 g/dL (6.4-8.2)
--- NOTE | 2017-05-02 10:11 | NUR ---
Nutrition follow-up: NPO NGT with Osmolite 1.5 patel infusing @ 40 ml/hr Labs reviewed. Electrolytes being replaced Wt: 157# Nursing reports pt more awake today. RDN monitoring pts progress.
--- NOTE | 2017-05-02 10:55 | NUR ---
05/02/2017 10:54 DCP: Discharge Planning Patient Name: GURJIT BARKER Encounter No: [id number] : 1955 Primary Insurance: MEDICARE A & B Planned Disposition: Home with Home Health DCP follow-up note: Patient may need rehab or SNF evaluation prior to dc. Case management will follow and assist as needed. Susana Vasques
--- NOTE | 2017-05-02 11:00 | NUR ---
PT REPOSITIONED, PARTIAL LINEN CHANGE, VSS, WILL CON TINUE TO MONITOR
--- NOTE | 2017-05-02 13:00 | NUR ---
TOTAL BED BATH LINEN CHANGE ORAL CARE PROVIDED VSS WILL CONTINUE TO MONITOR
--- NOTE | 2017-05-02 15:00 | NUR ---
PT REPOSITIONED, VSS, ALERT, ABLE TO SOMEWHAT FOLLOW COMMANDS, WILL CONTINUE TO MONITOR
[2017-05-02 16:11] LABS: ALBUMIN 2.2 g/dL (3.4-5.0); ANION GAP 7.7 mmol/L (8-16); BILIRUBIN - TOTAL 0.59 mg/dL (0.2-1.3); CALCIUM 9.1 mg/dL (8.5-10.1); CARBON DIOXIDE 30.9 mmol/L (21.0-32.0); CREATININE - SERUM 0.9 mg/dL (0.6-1.3); POTASSIUM - SERUM 4.6 mmol/L (3.5-5.1); PROTEIN - SERUM 5.7 g/dL (6.4-8.2)
--- NOTE | 2017-05-02 17:10 | NUR ---
REPOSITIONED, VSS, ORAL CARE PROVIDED, WILL CONTIN UE TO MONITOR
--- NOTE | 2017-05-02 19:45 | NUR ---
SHIFT ASSESSMENT COMPLETE. PT OPENS EYES WHEN SHE HEARS ME SPEAKING TO HER. SHE STATES THAT SHE IS NOT IN ANY PAIN AT THE MOMENT, BUT SHE IS UNABLE TO TELL ME HER NAME/PLACE/TIME/SITUATION. NGT PLACEMENT CHECKED WITH AUSCULTATION AND RESIDUAL. REDISUAL OF 10 CC NOTED. OSMOLITE 1.5 RUNNING AT 40 ML/HR. ORAL CARE PROVIDED. SORES NOTED ON TOPS AND BOTTOM OF MOUTH. NO TEETH. S1S2 AUDIBLE. HR 100 BPM SINUS TACH VIA TELEMETRY. RR SHALLOW, CRACKLES HEARD BILAT. ABD SOFT AND NONTENDER TO TOUCH. BS ACTIVE X4. R KNEE DRESSING CDI. BUTTOCKS RED AND EXCORIATED. RADIAL AND PEDAL PULSES PALP. SKIN IS LOOSE AND WRINKLED. R UPPER ARM MIDLINE CATH. BANANA BAG INFUSING @ 125 ML/HR AND PIPERACILLIN INFUSING @ 12.5 ML/HR. HERNANDEZ CATH DRAINING CLEAR YELLOW URINE. BLOOD SUGAR 223. WILL ADMIN INSULIN PER SLIDING SCALE. REPOSITIONED FOR COMFORT. WILL CONT TO MONITOR.
--- NOTE | 2017-05-02 21:00 | NUR ---
ORAL CARE PROVIDED. PT HAD SEMI FORMED BM. PARTIAL LINEN CHANGE COMPLETE AT THIS TIME. PARTIAL BED BATH. REPOSITONED FOR COMFORT. SON AT BEDSIDE. ANSWERED SOME QUESTIONS AND CONCERNS REGUARDING HIS MOTHER'S CARE. BOTH SON AND PT ARE IN GOOD SPIRITS. CALL LIGHT IN REACH. BED IN LOWEST POSITION. WILL CONT TO MONITOR.
[2017-05-02 21:18] LABS: ALBUMIN 2.1 g/dL (3.4-5.0); ALKALINE PHOSPHATASE 180 U/L (46-116); ALT (SGPT) 31 U/L (10-68); BILIRUBIN - TOTAL 0.52 mg/dL (0.2-1.3); CALC OSMOLALITY 278 mosm/kg (275-300); CALCIUM 8.4 mg/dL (8.5-10.1); CARBON DIOXIDE 28.6 mmol/L (21.0-32.0); CHLORIDE - SERUM 102 mmol/L (98-107); CREATININE - SERUM 0.8 mg/dL (0.6-1.3); PROTEIN - SERUM 4.9 g/dL (6.4-8.2); SODIUM 134 mmol/L (136-145); UREA NITROGEN 14 mg/dL (7-18); eGFR NON AFRICAN AMERICAN 77 mL/min (90-120)
[2017-05-02 21:23] LABS: GLUCOSE 281 mg/dL (74-106)
--- NOTE | 2017-05-02 23:30 | NUR ---
REASSESSMENT COMPLETE. PT WOULD NOT FOLLOW ANY SIMPLE COMMANDS FOR ME, BUT WOULD FOR HER SON. HER SON STATES THAT SHE HATES THE HOSPITAL AND THAT THAT IS THE REASON WHY SHE IS NOT RESPONDING TO ME AT THIS TIME. 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 PUPILS 3 MM BRISK REACTION TO LIGHT. ORAL CARE PROVIDED. REPOSITIONED FOR COMFORT. S1S2 AUDIBLE, HR 104 SINUS TACH VIA TELEMETRY. SHALLOW RR, CRACKLES HEARD BILAT. BS ACTIVE X4. ABD NON TENDER TO TOUCH. RADIAL AND PEDAL PULSES PALP. BANANA BAG INFUSING AT 125 ML/HR. VSS. BED IN LOWEST POSITION. PT IN SIGHT OF NURSE'S STATION. WILL CONT TO MONITOR.
[2017-05-03] VITALS (21 sets, daily range): BP systolic 80–141; BP diastolic 48–91
--- NOTE | 2017-05-03 01:00 | NUR ---
ORAL CARE PROVIDED. REPOSITIONED FOR COMFORT. VSS. PT IS MORE ALERT AND VOCAL AT THIS TIME. R LEG ELEVATED ON PILLOW. CALL LIGHT IN REACH. BED IN LOWEST POSITION. WILL CONT TO MONITOR.
[2017-05-03 02:57] LABS: BASOPHILS 0.4 % (0-2); EOSINOPHILS 2.6 % (0-7); HEMATOCRIT 27.4 % (36.0-48.0); HEMOGLOBIN 8.8 g/dL (12-16); IMMATURE GRANULOCYTES 1.9 % (0-5); MCHC 32.1 g/dL (31.0-37.0); MCV 90.4 fL (80.0-100.0); MEAN PLATELET VOLUME 8.6 fL (7.4-10.4); MONOCYTES 14.1 % (2-11); PLATELET COUNT 661 10x3/uL (130-400); RBC 3.03 10x6/uL (4.00-5.40); RDW 14.3 % (11.5-14.5); WBC 11.8 10x3/uL (4.8-10.8)
--- NOTE | 2017-05-03 03:00 | NUR ---
REASSESSMENT COMPLETE. WHEN ASKING PT A QUESTION SHE WILL LOOK AT ME, BUT NOT ANSWER. VSS. NO FURTHER CHANGES. SCD REMOVED OFF OF L LEG AND SKIN INSPECTED, WNL. OINTMENT APPLIED TO BUTTOCKS AREA. BUTTOCKS IS RED AND EXCORIATED. BANDAGE CDI. REPOSITIONED FOR COMFORT. LIGHT OFF. BED IN LOWEST POSITION. WILL CONT TO MONITOR.
[2017-05-03 03:14] LABS: ALBUMIN 2.1 g/dL (3.4-5.0); BILIRUBIN - TOTAL 0.48 mg/dL (0.2-1.3); CALCIUM 8.9 mg/dL (8.5-10.1); CARBON DIOXIDE 30.2 mmol/L (21.0-32.0); CREATININE - SERUM 0.9 mg/dL (0.6-1.3); PROTEIN - SERUM 5.6 g/dL (6.4-8.2)
[2017-05-03 03:17] LABS: POTASSIUM - SERUM 4.2 mmol/L (3.5-5.1)
--- NOTE | 2017-05-03 05:14 | NUR ---
SMALL BM NOTED. BROWN, SEMI FORMED STOOL. PARTIAL LINEN CHANGE AND BED BATH. OINTMENT REAPPLIED TO BUTTOCKS. BUTTOCKS IS RED AND EXCORIATED. DRESSING CDI. PT CONTINUES TO PULL AT TELEMETRY, NGT, AND IV LINES. EDUCATED HER ON WHY THOSE THINGS ARE SO IMPORTANT, AND SHE STATES THAT SHE UNDERSTANDS. NEW LEADS ON TELEMETRY. NGT REPOSITIONED OUT OF ARMS WAY. IV TUBING OUT OF ARMS WAY. CURTAIN OPEN. PT IN SIGHT OF NURSE'S STATION. WILL CONT TO MONITOR.
--- NOTE | 2017-05-03 07:00 | NUR ---
PT AWAKE BUT DROWSY. CONFUSED/DISORIENTED TO PLACE TIME AND SITUATION. ABLE TO FOLLOW COMMANDS BUT VERY INCONSISTENT. PT OPENS EYES AND MOVES EXREMITIES WHEN INSTRUCTED. SINUS TACHYCARDIA NOTED ON MONITOR. NGT IN PLACE AND SECURED, PT INSTRUCTED TO KEEP TUBE IN NOSE FOR SAFETY DUE TO INFUSING TUBE FEEDINGS WHICH ARE AT GOAL OF 40CC/HR. HOB 30 DEGREES AND PT REPOSITIONED IN BED. RT KNEE DRESSING CDI. VITAL SIGNS STABLE AND PT REMAINS ON ROOM AIR.
--- NOTE | 2017-05-03 09:30 | NUR ---
CASE MANAGEMENT CONSULTED. NOAH WITH CM CALLED AND SPOKE WITH PT SON-GREGORY AND HE STATES THAT AFTER TALKING TO HIS MOTHER LAST NIGHT WHEN SHE WAS MORE ALERT SHE STATED THAT SHE "DOES NOT WANT A FEEDING TUBE" AND "JUST WANTS TO GO HOME" CM DISCUSSED STATUS WITH FAMILY AND SON STATES THAT THEY WISH TO TAKE HER HOME ON HOSPICE. NOAH CALLED AND NOTIFIED HOSPICE AND MEETING HAS BEEN SET UP FOR NOON WITH FAMILY TO DISCUSS POSSIBLE NEED FOR HOSPICE CARE. ANN-MARIE CASILLAS CALLED AND DR FIGUEREDO ON UNIT AND NOTIFIED.
--- NOTE | 2017-05-03 10:07 | NUR ---
CM met with son, Deo, at bedside. POC discussed. He states patient keeps asking him to take her home. He states family has been discussing this the last few days and have decided they want to take her home with hospice. Answered questions about home hospice options. Deo states they want to proceed. He is unsure if he will take patient home with him to [place] or if she will go to her home in [facility]. He states he can have a room ready for equipment this afternoon at either location. Referral faxed and called to Germaine with [facility]. Steel Turner from [facility] will be here at 1200 today to meet with family. CM will follow & assist as needed.
[2017-05-03 10:10] LABS: ALBUMIN 2.1 g/dL (3.4-5.0); ALKALINE PHOSPHATASE 175 U/L (46-116); ALT (SGPT) 33 U/L (10-68); BILIRUBIN - TOTAL 0.52 mg/dL (0.2-1.3); CALCIUM 8.3 mg/dL (8.5-10.1); CARBON DIOXIDE 27.6 mmol/L (21.0-32.0); CHLORIDE - SERUM 101 mmol/L (98-107); CREATININE - SERUM 0.8 mg/dL (0.6-1.3); PROTEIN - SERUM 4.9 g/dL (6.4-8.2); SODIUM 135 mmol/L (136-145); UREA NITROGEN 14 mg/dL (7-18); eGFR NON AFRICAN AMERICAN 77 mL/min (90-120)
[2017-05-03 10:11] LABS: CALC OSMOLALITY 282 mosm/kg (275-300); GLUCOSE 312 mg/dL (74-106)
--- NOTE | 2017-05-03 11:00 | NUR ---
PT PAPERWORK READY FOR HOSPICE. FAMILY IS TO MEET WITH HOSPICE AT NOON TODAY. NO FURTHER CHANGES IN PT STATUS. DR MERCER CALLED AND HE RESPECTS FAMILY WISHES TO EVAL WITH HOSPICE.
--- NOTE | 2017-05-03 13:00 | NUR ---
FAMILY AT BEDSIDE AND VISITING WITH PT. HOSPICE NURSE AND COURT WORKER HERE AND SPOKE WITH FAMILY. WILL EVAL PER ORDER. VITAL SIGNS STABLE.
--- NOTE | 2017-05-03 14:57 | NUR ---
HOSPICE NURSE OBTAINING RECORDS FOR POSSIBLE TRANSFER TO HOME HOSPICE. DR DALLAS RETURNED CALL AND STATES THAT HE IS OKAY WITH HOSPICE CARE IF IT IS THE FAMILY'S WISHES. WAITING FOR FURTHER INSTRUCTION FROM HOSPICE BEFORE PROCEEDING WITH DISCHARGE PROCESS. WILL CONTINUE TO EVAL.
[2017-05-03 15:44] LABS: ANION GAP 8.5 mmol/L (8-16); BILIRUBIN - TOTAL 0.4 mg/dL (0.2-1.3); CALCIUM 8.8 mg/dL (8.5-10.1); CREATININE - SERUM 0.9 mg/dL (0.6-1.3); POTASSIUM - SERUM 4.5 mmol/L (3.5-5.1); PROTEIN - SERUM 5.5 g/dL (6.4-8.2)
--- NOTE | 2017-05-03 15:49 | NUR ---
HOSPICE NURSE COMPLETED EVAL AND STATED THAT THEY WILL ACCEPT PT TO DISCHARGE TO HOME HOSPICE CARE. WAITING FOR MEDICAL HOSPICE EQUIPMENT TO BECOME AVAILABLE PRIOR TO DISCHARGING PT. WILL DISCHARGE TOMORROW. FAMILY NOTIFIED.
--- NOTE | 2017-05-03 17:00 | NUR ---
NO CHANGES FROM PREVIOUS NOTE. DISCHARGE ORDER IN. WILL DISCHARGE PT TOMORROW PER ORDER WHEN HOSPICE IS READY WITH HOME EQUIPMENT
--- NOTE | 2017-05-03 19:15 | NUR ---
REPORT RECIEVED. PT IS SLEEPING PEACEFULLY AT THIS TIME. TF IS OFF. BANANA BAG AND ZOSYN INFUSING. NGT IN PLACE. RADIAL AND PEDAL PULSES PALP. HR 99 BPM, NORMAL SINUS RHYTHM. NO SIGNS OF ACUTE DISTRESS AT THIS TIME. HERNANDEZ CATH DRAINING CLEAR YELLOW URINE. BED IN LOWEST POSITION. WILL CONT TO MONITOR.
--- NOTE | 2017-05-03 21:15 | NUR ---
ORAL CARE PROVIDED. REPOSITIONED FOR COMFORT. FAMILY AT BEDSIDE. PT AND FAMILY ARE IN GOOD SPIRTS AND STATE THAT THEY ARE EXCITED TO GO HOME TOMORROW. FAMILY MEMBERS REQUESTED A BRUSH TO COMB HER HAIR. DELIVERED PROMTLY. BP CUFF OFF AT THIS TIME AND PT'S FAMILY STATES THAT THEY WANT TO LEAVE IT OFF FOR THE MOMENT. NO SIGNS OF ACUTE DISTRESS AT THIS TIME. WILL CONT TO MONITOR FROM NURSE'S STATION.
--- NOTE | 2017-05-03 22:40 | NUR ---
NGT CLOTTED OFF WITH TUBE FEEDING. UNABLE TO GIVE PO MEDS. PT TOLERATED PROCEDURE WELL. RESTING WITHOUT SIGNS OF DISTRESS. WILL CONT TO MONITOR.
--- NOTE | 2017-05-04 00:40 | NUR ---
PT SITTING UP IN BED ASKING WHEN SHE CAN GO HOME. TOLD HER THAT SHE WILL BE GOING HOME TOMORROW WITH HER SON. SHE STATES THAT SHE IS READY TO GO. PT DENIES ANY REQUEST AT THIS TIME. WILL CONT TO MONITOR.
--- NOTE | 2017-05-04 01:00 | NUR ---
REPOSITIONED PT FOR COMFORT. ORAL CARE PROVIDED. PT IS IN GOOD SPIRITS ABOUT GOING HOME. SHE STATES THAT SHE IS COMFORTABLE AND THAT SHE IS GOING TO TRY TO SLEEP. NO ACUTE DISTRESS NOTED. WILL CONT TO MONITOR.
--- NOTE | 2017-05-04 01:24 | NUR ---
ORAL CARE DONE
[2017-05-04 03:00] VITALS: BP 107/55
--- NOTE | 2017-05-04 03:00 | NUR ---
PT RESTING PEACEFULLY AT THIS TIME. VSS. NO NEEDS REQUESTED. WILL CONT TO MONITOR.
--- NOTE | 2017-05-04 05:10 | NUR ---
PT SLEEPING ON HER SIDE AT THIS TIME. VSS. NO ACUTE DISTRESS NOTED. WILL CONT TO MONITOR.
--- NOTE | 2017-05-04 06:46 | NUR ---
ORAL CARE DONE WITH PERIDEX
--- NOTE | 2017-05-04 07:22 | NUR ---
PLEASE DISCONTINUE THE LP DUE TO PT BEING MOVED TO HOSPICE
--- NOTE | 2017-05-04 07:27 | NUR ---
PT RESTING QUIETLY, VSS, AFEBRILE.
--- NOTE | 2017-05-04 07:47 | NUR ---
DISCUSSED PLAN WITH CM. WILL DC WITH HOSPICE TO [facility].
[2017-05-04 08:03] VITALS: BP 105/54
--- NOTE | 2017-05-04 10:13 | NUR ---
DCD ANNA TO RT KNEE. MASTISOL APPLIED AND STERISTRIPS APPLIED. INCISION CLOSED AND NO REDNESS OR DRAINAGE. PT JUJU WELL.
--- NOTE | 2017-05-04 10:33 | NUR ---
SPOKE TO CM AND PLAN IS THAT PT WILL GO TO [facility] THIS AFTERNOON.
--- NOTE | 2017-05-04 10:55 | NUR ---
Spoke with Germaine Zurita with [facility] - Patient has been accepted for home hospice. She states they are getting equipment set up in the home and will be ready for patient to discharge around noon. Spoke with son, Deo, via telephone. He confirms patient will be going to his home @ [address] [place] [address] in [place]. Answered his questions regarding hospice & how to revocate should they change their mind in the future. Met with patient @ bedside. She is alert to person, place and year. Explained POC & options. Explained hospice services at length. She is adamant she wants to go home on hospice today. Patient will transport via ambulance.
[2017-05-04] MEDS ORDERED: ELIQUIS2.5 MG PO (12:55)
[2017-05-04] MEDS ORDERED: VIBRAMYCIN 100100 MG PO (12:55)
--- NOTE | 2017-05-04 13:01 | NUR ---
PT BATHED AND LINENS CHANGED, DC INSTRUCTIONS GIVEN AND CALLED PT'S SON GREGORY AND EXPLANED ALL DC INSTRUCTIONS TO HIM.
--- NOTE | 2017-05-04 13:31 | NUR ---
PT DC VIA AMBULANCE, DENTURES BOTH UPPER AND LOWER CLEANSED AND ASSISTED WITH PT PLACING THEM IN HER MOUTH PT WISHES. SON NOTIFIED OF DEPARTURE TIME AND NEW RX. NORCO GIVEN TO PT PER SONS WISHES.
== END 2017-05-04 13:37 | disposition home health service (06) | DRG 492 ==
LOC: D.ER 18:51 → D.MS 22:04 → OBSVTIME 22:04 → D.MS 22:04 → D.ICU 04-18 10:29 → D.MS 04-18 10:29 → D.SDCHOLD 04-19 13:43 → D.MS 04-19 13:44 → D.ICU 04-20 00:46
PROVIDERS: Family Medicine; Internal Medicine Pulmonary Disease; Physician Assistant; Student in an Organized Health Care Education/Training Program; ADMIT Orthopaedic Surgery
DX: T84.032A Mechanical loosening of internal right knee prosthetic joint, initial encounter (principal); G93.41 Metabolic encephalopathy; F05 Delirium due to known physiological condition; D62 Acute posthemorrhagic anemia; F10.231 Alcohol dependence with withdrawal delirium; E46 Unspecified protein-calorie malnutrition; Z68.1 Body mass index [BMI] 19.9 or less, adult; E11.40 Type 2 diabetes mellitus with diabetic neuropathy, unspecified; Z79.4 Long term (current) use of insulin; I10 Essential (primary) hypertension; M06.9 Rheumatoid arthritis, unspecified; M32.9 Systemic lupus erythematosus, unspecified; T84.53XA Infection and inflammatory reaction due to internal right knee prosthesis, initial encounter; M35.00 Sjogren syndrome, unspecified; R06.82 Tachypnea, not elsewhere classified; E11.65 Type 2 diabetes mellitus with hyperglycemia; G47.419 Narcolepsy without cataplexy